=== PATIENT | male | born 1945 | race Caucasian/White ===

== ENCOUNTER 2017-10-25 14:29 | Inpatient (IN) | payer OTHER, MEDICARE ==
[~2017-10-25] VITALS: Ht 185.4 cm; Wt 95.3 kg
[2017-10-25 17:06] LABS: ABSOLUTE BASOPHIL COUNT 0 /CUMM (0.0-0.2); ABSOLUTE EOSINOPHIL COUNT 0.5 /CUMM (0.0-0.7); ABSOLUTE GRANULOCYTE CT 5.5 /CUMM (1.4-6.5); ABSOLUTE LYMPH COUNT 1.4 /CUMM (1.2-3.4); ABSOLUTE MONOCYTE COUNT 0.7 /CUMM (0.10-0.60); BASOPHIL % 0.2 % (0.0-2.0); EOSINOPHIL % 6.1 % (0-5); GRANULOCYTE % 67.8 % (42.2-75.2); HEMATOCRIT 42.4 % (42-52); MEAN CORPUSCULAR HGB 30.2 PG (27.0-31.0); MEAN CORPUSCULAR HGB CONC 33.2 G/DL (33.0-37.0); MEAN PLATELET VOLUME 9.4 FL (7.4-10.4); PLATELET COUNT 277 /CUMM (130-400); RED BLOOD CELL CT 4.66 /CUMM (4.70-6.10); WHITE BLOOD CELL COUNT 8.1 /CUMM (4.8-10.8)
--- NOTE | 2017-10-25 17:17 | ED GENERAL ADULT ---
History of Present Illness General Chief Complaint: Male Genitourinary Problems Stated Complaint: GROIN PAIN, ?UTI Source: patient Exam Limitations: no limitations Vital Signs & Intake/Output Vital Signs & Intake/Output Vital Signs Date Time Temp Pulse Resp B/P B/P Pulse O2 O2 Flow FiO2 Mean Ox Delivery Rate 10/25 2245 73 15 114/56 100 Room Air 10/25 2115 98.3 85 19 135/79 98 Room Air 10/25 1909 78 16 112/59 95 Room Air 10/25 1440 97.4 80 15 110/68 96 Room Air Room Air ED Intake and Output 10/26 0000 10/25 1200 Intake Total 100 Output Total Balance 100 Intake, IV 100 Patient 210 lb Weight Weight Reported by Patient Measurement Method Allergies Coded Allergies: digoxin (JAUNDICE 10/25/17) flecainide (JAUNDICE 10/25/17) Reconcile Medications Aspirin (Ecotrin*) 81 MG TABLET.DR 1 TAB PO DAILY HEART/BLOOD (Reported) Carvedilol (Coreg) 3.125 MG TABLET 0.5 TAB PO BID HEART/BP (Reported) Ciprofloxacin HCl 500 MG TABLET 1 TAB PO BID UTI (Reported) Lisinopril 2.5 MG TABLET 1 TAB PO DAILY BP (Reported) Rosuvastatin Calcium (Crestor) 10 MG TABLET 1 TAB PO DAILY CHOLESTEROL ( Reported) Tamsulosin HCl (Flomax) 0.4 MG CAP.ER.24H 1 CAP PO DAILY PROSTATE (Reported) Triage Note: PT TO ED FOR C/C OF DYSURIA X 4 WEEKS. PT REPORTS HE STARTS URINATING YELLOW URINE AND THEN AT THE END OF HIM URINATING THERE IS BROWN "SLUDGE." DENIES BLOOD OR BLOOD CLOTS. PT WAS DIAGNOSED WITH URO SEPSIS AT THE [facility] AND SENT TO ER AND ICU AND TREATED WITH CYPRO AND BACTRIM. DENIES ABD PAIN BUT REPORTS PAIN TO URETHRA. Triage Nurses Notes Reviewed? yes Onset: Gradual Duration: week(s): (4-5), constant, continues in ED, getting worse Timing: single episode today Injury Environment: home Severity: moderate, severe Severity Numbers: 6 No Modifying Factors: none HPI: 72-year-old male history of coronary artery disease presents for evaluation of dysuria frequency urgency and lower abdominal pain. Patient reports that back in July he had a colonoscopy and was told at that time he had a mild diverticulitis. This was not treated. He is told to change his diet. Patient states that several weeks later he developed urinary symptoms. He was seen by his doctor and diagnosed with UTI initially treated with Bactrim and then Cipro without any improvement. He began tO notice air bubbles and he sees in his urine within the last week that has been persistent. He reports intermittent suprapubic and perineal pain. No penile discharge no fevers no back pain no chest pain or shortness of breath. No hematuria. Currently he is taking Cipro without improvement. (Vimal Denny) Past History Travel History Traveled to [place] past 21 day No Medical History Any Pertinent Medical History? see below for history Neurological: NONE EENT: NONE Cardiovascular: CARDIAC STENTS Respiratory: NONE Gastrointestinal: NONE Hepatic: NONE Renal: NONE Musculoskeletal: NONE Psychiatric: NONE Endocrine: NONE Blood Disorders: NONE Cancer(s): NONE Surgical History Surgical History: non-contributory Psychosocial History What is your primary language Portuguese Tobacco Use: Quit >30 days ago ETOH Use: denies use Illicit Drug Use: denies illicit drug use Family History Hx Contributory? No (Vimal Denny) Review of Systems Review of Systems Constitutional: Reports: no symptoms. EENTM: Reports: no symptoms. Respiratory: Reports: no symptoms. Cardiovascular: Reports: no symptoms. GI: Reports: see HPI, abdominal pain. Genitourinary: Reports: see HPI, discharge, dysuria, frequency, pain, urgency. Musculoskeletal: Reports: no symptoms. Skin: Reports: no symptoms. Neurological/Psychological: Reports: no symptoms. Hematologic/Endocrine: Reports: no symptoms. Immunologic/Allergic: Reports: no symptoms. All Other Systems: Reviewed and Negative (Vimal Denny) Physical Exam Physical Exam General Appearance: well developed/nourished, no apparent distress, alert, awake Head: atraumatic, normal appearance Eyes: Bilateral: normal appearance, PERRL, EOMI. Ears, Nose, Throat: hearing grossly normal Neck: normal inspection, supple, full range of motion Respiratory: normal breath sounds, chest non-tender, no respiratory distress, lungs clear Cardiovascular: regular rate/rhythm, normal peripheral pulses Peripheral Pulses: 2+ radial (R), 2+ radial (L) Gastrointestinal: normal bowel sounds, soft, no organomegaly, tenderness (mild suprapubic) Back: normal inspection, normal range of motion, no vertebral tenderness, no CVA tenderness Extremities: normal inspection, normal range of motion, no edema Neurologic/Psych: no motor/sensory deficits, awake, alert, oriented x 3, normal gait Skin: intact, normal color, warm/dry Lymphatic: no anterior cervical philip Core Measures ACS in differential dx? No CVA/TIA Diagnosis: No Sepsis Present: No Sepsis Focused Exam Completed? No (Don DING,Vimal) Progress Differential Diagnoses I considered the following diagnoses in my evaluation of the patient: [Enteric fistula, pyelonephritis, kidney stones, prostatitis, sepsis,] Plan of Care: Orders Procedure Date/time Status ED Holding Orders 10/25 2332 Active Admit to inpatient 10/25 2332 Active Vital Signs 10/25 2332 Active Code Status 10/25 2332 Active Patient Data 10/25 2322 Active EKG 10/25 2130 Active LACTIC ACID 10/25 1740 Complete Add-on Test (ER Only) 10/25 1724 Active Intake & Output 10/25 1645 Active TROPONIN LEVEL 10/25 1637 Complete CULTURE,URINE 10/25 1440 Active BLOOD CULTURE 10/25 1440 Active URINALYSIS 10/25 1440 Complete LACTIC ACID 10/25 1440 Complete CBC WITHOUT DIFFERENTIAL 10/25 1440 Complete BASIC METABOLIC PANEL 10/25 1440 Complete Laboratory Tests 10/25/17 1900: Lactic Acid 1.2 10/25/17 1637: Anion Gap 14, Estimated GFR > 60, BUN/Creatinine Ratio 15.0, Glucose 177 H, Lactic Acid 1.7, Calcium 9.7, Troponin I < 0.01, CBC w Diff NO MAN DIFF REQ, RBC 4.66 L, MCV 91.0, MCH 30.2, MCHC 33.2, RDW 13.0, MPV 9.4, Gran % 67.8, Lymphocytes % 17.5 L, Monocytes % 8.4, Eosinophils % 6.1 H, Basophils % 0.2, Absolute Granulocytes 5.5, Absolute Lymphocytes 1.4, Absolute Monocytes 0.7 H, Absolute Eosinophils 0.5, Absolute Basophils 0 10/25/17 1525: Urine Color YEL, Urine Clarity TURBD H, Urine pH 6.5, Ur Specific [place] 1.015 , Urine Protein 30 H, Urine Ketones NEG, Urine Nitrite NEG, Urine Bilirubin NEG , Urine Urobilinogen 0.2, Ur Leukocyte Esterase LARGE H, Ur Microscopic SEDIMENT EXAMINED, Urine RBC 3-5, Urine WBC 50-75 H, Ur Epithelial Cells FEW, Urine Bacteria MANY H, Urine Hemoglobin MOD H, Urine Glucose NEG Microbiology 10/25 1637 BLOOD: Blood Culture - RECD 10/25 1625 BLOOD: Blood Culture - RECD 10/25 1525 URINE ROUT: Urine Culture - RECD Patient is here with dysuria frequency urgency and superpubic pain. Treated with multiple antibiotics. His urine is showing signs of infection. Visual inspection of his urine shows what appears to be feces. Suspect there may be a fistula. Labs CT scan of the abdomen pelvis ordered. Blood work Is not showing any acute findings. Urine cultures and blood cultures ordered. CT scan shows evidence of acute diverticulitis with fistula track between the colon and bladder. Spoke with Dr. Adler from urology who is aware. Also spoke with Dr. Paul who will admit the patient for IV antibiotics and eventual surgical intervention. Case discussed with Dr. FLORES HE agrees. Diagnostic Imaging: Viewed by Me: CT Scan. Discussed w/RAD: CT Scan. Radiology Impression: PATIENT: ZITA RODRIGUEZ PRESENT AGE: 72 PATIENT ACCOUNT NO: [id number] : 44 LOCATION: [facility] ORDERING PHYSICIAN: Vimal DING SERVICE DATE: 10/25/17 EXAM TYPE: CAT - CT ABD & PELVIS W IV CONTRAST EXAMINATION: CT ABDOMEN AND PELVIS WITH CONTRAST CLINICAL INFORMATION: 72-year-old male passing stool through urethra. Evaluate for ureteroenteric fistula, prostatitis, abscess. COMPARISON: None TECHNIQUE: Multidetector volumetric imaging was performed of the abdomen and pelvis following IV administration of 95 mL of Optiray 320 intravenous contrast. Sagittal and coronal reformatted images were obtained on the technologist's workstation. DLP: 547 mGy-cm FINDINGS: LUNG BASES: Mild atelectasis in dependent aspect of each lower lobe. Mild emphysematous changes in the bases. Atherosclerotic calcification of coronary arteries and thoracic aorta. No pericardial effusion. LIVER, GALLBLADDER, AND BILIARY TREE: Liver has normal size, contour and attenuation. Gallbladder is underdistended and without radiopaque calculi or wall edema. No intrahepatic or extrahepatic bile duct dilatation. PANCREAS: Pancreas is atrophied. No focal pancreatic lesion or pancreatic ductal dilatation. SPLEEN: Unremarkable. ADRENAL GLANDS: Unremarkable. KIDNEYS AND URETERS: Kidneys are normal in size and enhance symmetrically. No renal mass, nephrolithiasis or hydronephrosis. The ureters are normal in caliber. BLADDER: There is a fistula tract between the sigmoid colon and posterior bladder wall. Gas is present within the lumen of the bladder. No bladder calculi. GASTROINTESTINAL TRACT: Stomach is unremarkable. Bowel loops are normal in caliber. The appendix is normal. There is diverticular disease of the sigmoid colon which has a thickened wall, and mild fat stranding is seen around the sigmoid colon. A colovesical fistula is noted. Also, the fistula tract extends superiorly into the sigmoid mesentery but does not communicate with small bowel. No bowel obstruction. ABDOMINAL WALL: Unremarkable. LYMPH NODES: Mild lymphadenopathy is seen in the periportal region, with largest lymph node in this area measuring 1.1 cm short axis dimension. The retroperitoneal lymph nodes are in the normal size range. No iliac, mesenteric or inguinal lymphadenopathy. VASCULAR: Atherosclerosis of the abdominal aorta. The infrarenal abdominal aorta measures up to 3.1 cm AP diameter. PELVIC VISCERA: Prostate gland is grossly unremarkable. No evidence of prostate abscess. Trace amount of free fluid is seen in the pelvis. OSSEOUS STRUCTURES: Multilevel degenerative disc disease an facet arthropathy of the lumbar spine. No suspicious osseous lesions. IMPRESSION: 1. Diverticular disease and diverticulitis of the sigmoid colon complicated by presence of a colovesical fistula. 2. Mild lymphadenopathy in the periportal region is of questionable significance. 3. Mild aneurysmal dilatation of the infrarenal abdominal aorta ( 3.1 cm AP diameter). DICTATED BY: Armen Daley MD DATE/TIME DICTATED:10/25/172048 DISCOVERY GUIDE:IGNACIO DATE/TIME TRANSCRIBED:10/25/172048 CONFIDENTIAL, DO NOT COPY WITHOUT APPROPRIATE AUTHORIZATION. <Electronically signed in Other V Initial ED EKG: normal sinus rhythm, no ST T wave changes, PVC (Vimal Denny) Departure Departure Disposition: STILL A PATIENT Condition: Stable Clinical Impression Primary Impression: [place]-vesical fistula Secondary Impressions: Diverticulitis Referrals: Yesica WELLS,Jovany Bo (PCP/Family) Departure Forms: Customer Survey General Discharge Information Admission Note Spoke With: Joseph WELLS,William N. Documentation of Exam: Documentation of any treatments & extenuating circumstances including Concerns Regarding Discharge (functional status, medication knowledge or non-compliance, living conditions, etc.) that warrant an admission rather than observation: [IV antibiotics and urology consult general surgery consult serial labs follow-up cultures nothing by mouth IV fluids and IV pain meds] (Vimal Denny) PA/MOBILE DISC JOCKEY Co-Sign Statement Statement: ED Attending supervision documentation- [X] I saw and evaluated the patient. I have also reviewed all the pertinent lab results and diagnostic results. I agree with the findings and the plan of care as documented in the PA's/MOBILE DISC JOCKEY's documentation. [] I have reviewed the ED Record and agree with the PA's/MOBILE DISC JOCKEY's documentation. [] Additions or exceptions (if any) to the PAs/MOBILE DISC JOCKEY's note and plan are summarized below: [] I saw and personally examined the patient and I agree with the PAs evaluation. Abdomen was soft with minimal right lower quadrant tenderness on my exam. (Gil Flores DO) Critical Care Note Critical Care Note Critical Care Time: non-applicable (Vimal Denny)
[2017-10-25] MEDS ORDERED: ASPIRIN EC81 M1 PO (17:41)
[2017-10-25] MEDS ORDERED: COREG3.125 MG PO (17:42)
[2017-10-25] MEDS ORDERED: FLOMAX0.4 M1 PO (17:42)
[2017-10-25] MEDS ORDERED: LISINOPRIL2.5 M1 PO (17:42)
[2017-10-25] MEDS ORDERED: CRESTOR10 M1 PO (17:42)
[2017-10-25] MEDS ORDERED: CIPROFLOXACIN500 M2 PO (17:43)
--- NOTE | 2017-10-25 21:01 | CT SCAN REPORT ---
EXAMINATION: CT ABDOMEN AND PELVIS WITH CONTRAST CLINICAL INFORMATION: 72-year-old male passing stool through urethra. Evaluate for ureteroenteric fistula, prostatitis, abscess. COMPARISON: None TECHNIQUE: Multidetector volumetric imaging was performed of the abdomen and pelvis following IV administration of 95 mL of Optiray 320 intravenous contrast. Sagittal and coronal reformatted images were obtained on the technologist's workstation. DLP: 547 mGy-cm FINDINGS: LUNG BASES: Mild atelectasis in dependent aspect of each lower lobe. Mild emphysematous changes in the bases. Atherosclerotic calcification of coronary arteries and thoracic aorta. No pericardial effusion. LIVER, GALLBLADDER, AND BILIARY TREE: Liver has normal size, contour and attenuation. Gallbladder is underdistended and without radiopaque calculi or wall edema. No intrahepatic or extrahepatic bile duct dilatation. PANCREAS: Pancreas is atrophied. No focal pancreatic lesion or pancreatic ductal dilatation. SPLEEN: Unremarkable. ADRENAL GLANDS: Unremarkable. KIDNEYS AND URETERS: Kidneys are normal in size and enhance symmetrically. No renal mass, nephrolithiasis or hydronephrosis. The ureters are normal in caliber. BLADDER: There is a fistula tract between the sigmoid colon and posterior bladder wall. Gas is present within the lumen of the bladder. No bladder calculi. GASTROINTESTINAL TRACT: Stomach is unremarkable. Bowel loops are normal in caliber. The appendix is normal. There is diverticular disease of the sigmoid colon which has a thickened wall, and mild fat stranding is seen around the sigmoid colon. A colovesical fistula is noted. Also, the fistula tract extends superiorly into the sigmoid mesentery but does not communicate with small bowel. No bowel obstruction. ABDOMINAL WALL: Unremarkable. LYMPH NODES: Mild lymphadenopathy is seen in the periportal region, with largest lymph node in this area measuring 1.1 cm short axis dimension. The retroperitoneal lymph nodes are in the normal size range. No iliac, mesenteric or inguinal lymphadenopathy. VASCULAR: Atherosclerosis of the abdominal aorta. The infrarenal abdominal aorta measures up to 3.1 cm AP diameter. PELVIC VISCERA: Prostate gland is grossly unremarkable. No evidence of prostate abscess. Trace amount of free fluid is seen in the pelvis. OSSEOUS STRUCTURES: Multilevel degenerative disc disease an facet arthropathy of the lumbar spine. No suspicious osseous lesions. IMPRESSION: 1. Diverticular disease and diverticulitis of the sigmoid colon complicated by presence of a colovesical fistula. 2. Mild lymphadenopathy in the periportal region is of questionable significance. 3. Mild aneurysmal dilatation of the infrarenal abdominal aorta (3.1 cm AP diameter).
--- NOTE | 2017-10-26 00:53 | History & Physical Pre-Op ---
General Information and [facility] MD Statement: I have seen and personally examined ZITA RODRIGUEZ and documented this H&P. The patient is a 72 year old M who presented with a patient stated chief complaint of "brown urine". Source of Information: patient, family Exam Limitations: no limitations History of Present Illness: Patient is a 72-year-old male with a past medical history significant for coronary artery disease, MO/stents, who presented to the ED on 10/25/2017 around 2:45 PM with complaints of progressively worsening dysuria (which he describes as sharp "prostate" pain) and brown, turbid urine. Patient reports a recent history of urosepsis, requiring 2 previous ED visits at [facility] and the [facility], with a subsequent admission to the ICU at the [facility] about 3 weeks ago, after failing a course of oral antibiotics. He received IV antibiotics for about 2 days and then was discharged home on oral Cipro, which he's been taking for the past 3 weeks. He is scheduled to see Urologist, Dr. Adler, on 10/30/2017, but became worried when his symptoms were not improving and his urine was appearing darker brown with time. He also noted air in his urine for about the past week, thus prompting visit to the [place] ED. Subsequent workup revealed acute diverticulitis with evidence of colovesicular fistula. He is afebrile, vital signs are stable, and he denies significant pain at this time. He reports feeling hungry, as per his usual appetite. Otherwise denies headache, dizziness, acute chest pain, palpitations, shortness of breath, cough, nausea, vomiting, changes in bowel habits. Of note, patient had a routine stool sample done earlier this year for colon cancer screening, which was heme positive. This prompted a colonoscopy, which revealed evidence of diverticulosis and hemorrhoids. Per patient report, no treatment was recommended, as there was no evidence of infection or instability at that time. Allergies/Medications Allergies: Coded Allergies: digoxin (JAUNDICE 10/25/17) flecainide (JAUNDICE 10/25/17) Home Med list Aspirin (Ecotrin*) 81 MG TABLET. 1 TAB PO DAILY HEART/BLOOD (Reported) Carvedilol (Coreg) 3.125 MG TABLET 0.5 TAB PO BID HEART/BP (Reported) Ciprofloxacin HCl 500 MG TABLET 1 TAB PO BID UTI (Reported) Lisinopril 2.5 MG TABLET 1 TAB PO DAILY BP (Reported) Rosuvastatin Calcium (Crestor) 10 MG TABLET 1 TAB PO DAILY CHOLESTEROL ( Reported) Tamsulosin HCl (Flomax) 0.4 MG CAP.ER.24H 1 CAP PO DAILY PROSTATE (Reported) Compliance With Home Meds: GOOD Past History Medical History Neurological: NONE EENT: NONE Cardiovascular: CARDIAC STENTS Respiratory: NONE Gastrointestinal: NONE Hepatic: NONE Renal: NONE Musculoskeletal: NONE Psychiatric: NONE Endocrine: NONE Blood Disorders: NONE Cancer(s): NONE Surgical History Pertinent Surgical History: bilateral carpal tunnel Past Family/Social History Psychosocial History Where Do You Live? Home Who Do You Live With? spouse Smoking Status: Former Smoker (quit 1979 (prior 30+ yrs)) ETOH Use: denies use Illicit Drug Use: denies illicit drug use Functional Ability Ambulation: independent Review of Systems Review of Systems: Positive for dysuria, she describes as "prostate" pain, with some urinary retention, brown urine with large amounts of air noted during void. Negative for fever, chills, sweating, headache, dizziness, chest pain, shortness of breath, palpitations, cough, nausea, vomiting, changes in bowel habits. Exam & Diagnostic Data Last 24 Hrs of Vital Signs/I&O Vital Signs Date Time Temp Pulse Resp B/P B/P Pulse O2 O2 Flow FiO2 Mean Ox Delivery Rate 10/25 2245 73 15 114/56 100 Room Air 10/25 2115 98.3 85 19 135/79 98 Room Air 10/25 1909 78 16 112/59 95 Room Air 10/25 1440 97.4 80 15 110/68 96 Room Air Room Air Intake & Output 10/26 0800 10/26 0000 10/25 1600 Intake Total 100 Output Total Balance 100 Intake, IV 100 Patient 210 lb Weight Weight Reported by Patient Measurement Method Physical Exam: Gen.: Patient is a well-developed, well-nourished 72-year-old male in no acute distress. He is alert and oriented 3. Ears comfortable. Cardiac: Regular Pulmonary: Lungs are clear bilaterally. Abdomen: Soft and nondistended. Nontender throughout. No surgical scars are appreciated. 4 active bowel sounds are heard. Last 24 Hrs of Labs/Shahzad: Laboratory Tests 10/25/17 1900: Lactic Acid 1.2 10/25/17 1637: Anion Gap 14, Estimated GFR > 60, BUN/Creatinine Ratio 15.0, Glucose 177 H, Lactic Acid 1.7, Calcium 9.7, Troponin I < 0.01, CBC w Diff NO MAN DIFF REQ, RBC 4.66 L, MCV 91.0, MCH 30.2, MCHC 33.2, RDW 13.0, MPV 9.4, Gran % 67.8, Lymphocytes % 17.5 L, Monocytes % 8.4, Eosinophils % 6.1 H, Basophils % 0.2, Absolute Granulocytes 5.5, Absolute Lymphocytes 1.4, Absolute Monocytes 0.7 H, Absolute Eosinophils 0.5, Absolute Basophils 0 10/25/17 1525: Urine Color YEL, Urine Clarity TURBD H, Urine pH 6.5, Ur Specific [place] 1.015 , Urine Protein 30 H, Urine Ketones NEG, Urine Nitrite NEG, Urine Bilirubin NEG , Urine Urobilinogen 0.2, Ur Leukocyte Esterase LARGE H, Ur Microscopic SEDIMENT EXAMINED, Urine RBC 3-5, Urine WBC 50-75 H, Ur Epithelial Cells FEW, Urine Bacteria MANY H, Urine Hemoglobin MOD H, Urine Glucose NEG Microbiology 10/26 0017 URINE ROUT: Urine Culture - ORD 10/25 1637 BLOOD: Blood Culture - RECD 10/25 1625 BLOOD: Blood Culture - RECD 10/25 1525 URINE ROUT: Urine Culture - RECD Diagnostic Data Other Results CT scan of abdomen and pelvis revealed: 1. Diverticular disease and diverticulitis of the sigmoid colon complicated by presence of a colovesical fistula. 2. Mild lymphadenopathy in the periportal region is of questionable significance. 3. Mild aneurysmal dilatation of the infrarenal abdominal aorta (3.1 cm AP diameter). Assessment/Plan Assessment/Plan: Patient is a 72-year-old male with a history of coronary artery disease, MO/ stents who has been treated for UTI/urosepsis with intermittent IV and oral antibiotics for the past 4 weeks. He presented with progressively worsening symptoms and CT evidence of diverticulitis and colovesicular fistula, without active fevers or leukocytosis. Plan: -Admit to general on William Ruiz MD's service. -Patient remains hemodynamically stable and therefore no emergent surgical intervention is required, however he will most likely require surgical correction sometime later this week. -Sanchez catheter for bladder decompression. If urology c/s is needed, notify Dr. Adler as pt is scheduled to see him later this week. -IV Unasyn every 6 hours. -Low fiber diet. -IV fluids at 75 ML's per hour. -Patient may ambulate as desired. -Subcutaneous heparin for DVT prophylaxis and Alps when in bed. -Monitor temps, WBC, urine color, and serial exams. -If tachycardia is noted, low threshold for checking EKG because pt was thought to have a brief episode of atrial fibrillation during a stress test about 4 weeks ago. Holter monitoring has been negative, but completion of workup is still pending. Pt's network operations specialist is Cosme Rodriguez. -This was discussed with William Ruiz MD and he agrees with the plan. As Ranked By This Provider Problem List: 1. Diverticulitis 2. [place]-vesical fistula
[2017-10-26 02:10] VITALS: BP 112/64
[2017-10-26 06:20] VITALS: BP 112/68
--- NOTE | 2017-10-26 09:02 | PN- General Surgery ---
Subjective Subjective: HD#1 DIVERTICULITIS W/CV FISTULA cont iwth intemittent sharp stabbing pain in perineal area denies abd pain no cp, sob, no n+v with diet Objective Vital Signs and I&Os Vital Signs Date Time Temp Pulse Resp B/P B/P Pulse O2 O2 Flow FiO2 Mean Ox Delivery Rate 10/26 0620 97.8 79 18 112/68 95 Room Air 10/26 0210 98.0 71 18 112/64 94 Room Air 10/26 0101 98.9 68 18 105/62 98 Room Air 10/25 2245 73 15 114/56 100 Room Air 10/25 2115 98.3 85 19 135/79 98 Room Air 10/25 1909 78 16 112/59 95 Room Air 10/25 1440 97.4 80 15 110/68 96 Room Air Room Air Intake & Output 10/26 1600 10/26 0800 10/26 0000 10/25 1600 10/25 0800 10/25 0000 Intake Total 500 100 Output Total 500 Balance 0 100 Intake, IV 400 100 Intake, Oral 100 Output, Urine 500 Patient 207 lb 210 lb Weight Weight Bed scale Reported by Patient Measurement Method Physical Exam: cv: rrr lungs; clear abd: soft, +bs minimal pain with low ad palp no guarding or peritonitis ext: warm, distal cms intact davis: clear urine Assessment/Plan Assessment/Plan surgical stable plan iv abx dr wisnlow to see Core Measures Venous Thromboembolism VTE Risk Factors Age>40 No Mechanical VTE Prophylaxis d/t N/A MechProphylax Ordered No VTE Pharm Prophylaxis d/t NA PharmProphylax ordered
[2017-10-26 09:16] LABS: ABSOLUTE BASOPHIL COUNT 0 /CUMM (0.0-0.2); ABSOLUTE EOSINOPHIL COUNT 0.6 /CUMM (0.0-0.7); ABSOLUTE GRANULOCYTE CT 1.9 /CUMM (1.4-6.5); ABSOLUTE LYMPH COUNT 1.2 /CUMM (1.2-3.4); ABSOLUTE MONOCYTE COUNT 0.6 /CUMM (0.10-0.60); BASOPHIL % 0.6 % (0.0-2.0); EOSINOPHIL % 13.2 % (0-5); GRANULOCYTE % 43.7 % (42.2-75.2); MEAN CORPUSCULAR HGB 30.4 PG (27.0-31.0); MEAN CORPUSCULAR HGB CONC 33.4 G/DL (33.0-37.0); MEAN CORPUSCULAR VOLUME 91.1 FL (80.0-94.0); MEAN PLATELET VOLUME 9.4 FL (7.4-10.4); PLATELET COUNT 194 /CUMM (130-400); RBC DISTRIBUTION WIDTH 13.2 % (11.5-14.5); RED BLOOD CELL CT 3.88 /CUMM (4.70-6.10); WHITE BLOOD CELL COUNT 4.3 /CUMM (4.8-10.8)
[2017-10-26 09:39] LABS: HEMATOCRIT 35.4 % (42-52)
[2017-10-26 15:33] VITALS: BP 100/60
--- NOTE | 2017-10-26 16:22 | History & Physical Pre-Op ---
General Information and HPI MD Statement: I have seen and personally examined ZTIA RODRIGUEZ and documented this H&P. The patient is a 72 year old M who presented with a patient stated chief complaint of []. Source of Information: patient, family Exam Limitations: no limitations History of Present Illness: CC: Urine infection HPI: 72-year-old nondiabetic nonsmoker with a remote history of an NV not on anticoagulants had a colonoscopy in July they saw 2 benign polyps and question of some mild signs of sigmoid diverticulitis felt not need to be treated, then shortly after that he started having a urinary infection has been on 3 different antibiotics even admitted at another hospital for urosepsis briefly but he came here last night because the urine is becoming browner also it hurts for him to be especially at his prostate which is enlarged he's on Flomax, he was also seeking a second opinion from urology and has an appointment is also noted occasional air bubbles while he is being overall this is been going on for a few weeks otherwise no fever shakes chills no abdominal pain throughout this episode he never had diverticulitis before denies any significant changes in his bowel habits constipation or diarrhea no nausea no cramping he's tolerating diet no shortness of breath no chest pain no recent flulike symptoms no bleeding per rectum and no gross hematuria. I've reviewed the [facility]. No history of GERD, PUD, bleeding problems, heart disease or issues with anesthesia. Past surgical history no prior abdominal surgery, family history no diabetes or cancer. Allergies/Medications Allergies: Coded Allergies: digoxin (JAUNDICE 10/25/17) flecainide (JAUNDICE 10/25/17) Home Med list Aspirin (Ecotrin*) 81 MG TABLET.DR 1 TAB PO DAILY HEART/BLOOD (Reported) Carvedilol (Coreg) 3.125 MG TABLET 0.5 TAB PO BID HEART/BP (Reported) Ciprofloxacin HCl 500 MG TABLET 1 TAB PO BID UTI (Reported) Lisinopril 2.5 MG TABLET 1 TAB PO DAILY BP (Reported) Rosuvastatin Calcium (Crestor) 10 MG TABLET 1 TAB PO DAILY CHOLESTEROL ( Reported) Tamsulosin HCl (Flomax) 0.4 MG CAP.ER.24H 1 CAP PO DAILY PROSTATE (Reported) Compliance With Home Meds: GOOD Past History Medical History Blood Transfusion Hx: No Neurological: NONE EENT: hearing loss, TINNITIS Cardiovascular: hypertension, hyperlipidemia, CARDIAC STENTS Respiratory: NONE Gastrointestinal: NONE Hepatic: NONE Renal: NONE Musculoskeletal: NONE Psychiatric: NONE Endocrine: NONE Blood Disorders: NONE Cancer(s): NONE 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 Home Who Do You Live With? spouse Services at Home None Smoking Status: Former Smoker (quit 1979 (prior 30+ yrs)) ETOH Use: denies use Illicit Drug Use: denies illicit drug use Functional Ability Ambulation: independent Review of Systems Review of Systems: Constitutional: No fever, sweats or weight loss ENMT: No sore throat Cardiovascular: No chest pain, palpitations or leg swelling Respiratory: No shortness of breath, cough, or sputum or dyspnea on exertion GI: No GERD or bleeding per rectum : No dysuria or hematuria Musculoskeletal: No new muscle weakness, bone or joint pain Skin / Breast: No jaundice, rashes or itching Psychiatric: No history of drug or alcohol abuse no depression or anxiety Hematologic / lymphatic system: No problems with excessive bleeding, bruising, or blood clots Exam & Diagnostic Data Last 24 Hrs of Vital Signs/I&O I reviewed Vital Signs Date Time Temp Pulse Resp B/P B/P Pulse O2 O2 Flow FiO2 Mean Ox Delivery Rate 10/26 1533 98.0 66 20 100/60 94 10/26 0620 97.8 79 18 112/68 95 Room Air 10/26 0210 98.0 71 18 112/64 94 Room Air 10/26 0101 98.9 68 18 105/62 98 Room Air 10/25 2245 73 15 114/56 100 Room Air 10/25 2115 98.3 85 19 135/79 98 Room Air 10/25 1909 78 16 112/59 95 Room Air I reviewed Intake & Output 10/26 1600 10/26 0800 10/26 0000 Intake Total 1450 500 100 Output Total 700 500 Balance 750 0 100 Intake, IV 600 400 100 Intake, Oral 850 100 Output, Urine 700 500 Patient 207 lb Weight Weight Bed scale Measurement Method Physical Exam: Sanchez catheter urine clear yellow Constitutional: pleasant, no acute distress, conversant Eyes: sclera anicteric ENMT: ears and nose atraumatic, moist mucous membranes, good dentition, no lip lesions Neck: Supple, trachea is midline, no cervical or supraclavicular adenopathy and no palpable thyromegaly Cardiovascular: S1, S2, no murmurs, no peripheral edema Respiratory: clear to auscultation with normal respiratory effort and no intercostal retractions GI: abdomen soft, nontender, nondistended, no palpable hepatosplenomegaly Extremities / lymphatics: symmetrically warm, free range of motion no peripheral edema, no cervical, supraclavicular, axillary, or inguinal adenopathy Musculoskeletal: Did not evaluate gait and station, no digital cyanosis, good muscle strength and tone no atrophy, motor grossly 5 out of 5 throughout Skin: no jaundice, no rashes warm, nondiaphoretic, no areas of erythema or induration Psychiatric: mood and affect are appropriate and alert and oriented to person place and time Last 24 Hrs of Labs/Shahzad: I reviewed Laboratory Tests 10/26/17 0800: CBC w Diff NO MAN DIFF REQ, RBC 3.88 L, MCV 91.1, MCH 30.4, MCHC 33.4, RDW 13.2 , MPV 9.4, Gran % 43.7, Lymphocytes % 27.5, Monocytes % 15.0 H, Eosinophils % 13.2 H, Basophils % 0.6, Absolute Granulocytes 1.9, Absolute Lymphocytes 1.2, Absolute Monocytes 0.6, Absolute Eosinophils 0.6, Absolute Basophils 0 10/25/17 1900: Lactic Acid 1.2 10/25/17 1637: Anion Gap 14, Estimated GFR > 60, BUN/Creatinine Ratio 15.0, Glucose 177 H, Lactic Acid 1.7, Calcium 9.7, Troponin I < 0.01, CBC w Diff NO MAN DIFF REQ, RBC 4.66 L, MCV 91.0, MCH 30.2, MCHC 33.2, RDW 13.0, MPV 9.4, Gran % 67.8, Lymphocytes % 17.5 L, Monocytes % 8.4, Eosinophils % 6.1 H, Basophils % 0.2, Absolute Granulocytes 5.5, Absolute Lymphocytes 1.4, Absolute Monocytes 0.7 H, Absolute Eosinophils 0.5, Absolute Basophils 0 Microbiology 10/26 0220 URINE ROUT: Urine Culture - RECD 10/25 1637 BLOOD: Blood Culture - RES 10/25 1625 BLOOD: Blood Culture - RES Diagnostic Data Other Results CT scan of abdomen and pelvis revealed: 1. Diverticular disease and diverticulitis of the sigmoid colon complicated by presence of a colovesical fistula. 2. Mild lymphadenopathy in the periportal region is of questionable significance. 3. Mild aneurysmal dilatation of the infrarenal abdominal aorta (3.1 cm AP diameter). Assessment/Plan Assessment/Plan: Studies I reviewed yesterday's CT scan on PACS myself, it shows a redundant sigmoid colon distally its thickened with multiple diverticula and you can see the connection to the bladder posteriorly Electrolytes yesterday within normal limits other than BUN being elevated white blood cell count a little low and his baseline no shift, hemoglobin down reflecting hydration overnight. Impression is complicated sigmoid diverticulitis with colovesical fistula, he is not septic he has no abdominal pain and no bowel obstruction, but he did have urosepsis from this earlier. I don't feel emergency surgery is indicated that would involve a colostomy question is timing of primary resection in the face of ongoing colonic inflammation out of concern for a successful primary anastomosis , he seems better just from a Sanchez catheter so we'll discuss with whether we should wait for further decrease inflammation with him having a Sanchez at home, versus prep tomorrow resection this admission, because he is already had several weeks of oral antibiotics without obvious improvement in him not sure IV we'll make that much of a difference. I explained to him that generally we try to avoid colonic surgery during acute inflammation because of risk to surrounding structures and anastomotic leak with those risky morbid sequela. Also in anticipation of OR will get cardiology because of his history. As Ranked By This Provider Problem List: 1. [place]-vesical fistula 2. Diverticulitis
[2017-10-26 20:56] VITALS: BP 102/62
[2017-10-27 06:42] VITALS: BP 106/74
[2017-10-27 08:57] LABS: ABSOLUTE BASOPHIL COUNT 0 /CUMM (0.0-0.2); ABSOLUTE EOSINOPHIL COUNT 0.5 /CUMM (0.0-0.7); ABSOLUTE GRANULOCYTE CT 3.6 /CUMM (1.4-6.5); ABSOLUTE LYMPH COUNT 0.9 /CUMM (1.2-3.4); ABSOLUTE MONOCYTE COUNT 0.5 /CUMM (0.10-0.60); BASOPHIL % 0.4 % (0.0-2.0); EOSINOPHIL % 9.4 % (0-5); GRANULOCYTE % 64.5 % (42.2-75.2); HEMATOCRIT 37.6 % (42-52); MEAN CORPUSCULAR HGB 30.3 PG (27.0-31.0); MEAN CORPUSCULAR HGB CONC 33.5 G/DL (33.0-37.0); MEAN CORPUSCULAR VOLUME 90.5 FL (80.0-94.0); MEAN PLATELET VOLUME 9.7 FL (7.4-10.4); PLATELET COUNT 196 /CUMM (130-400); RBC DISTRIBUTION WIDTH 13.4 % (11.5-14.5); RED BLOOD CELL CT 4.16 /CUMM (4.70-6.10); WHITE BLOOD CELL COUNT 5.5 /CUMM (4.8-10.8)
--- NOTE | 2017-10-27 10:13 | Cons- Urology ---
General Information and HPI Consulting Request Date of Consult: 10/27/17 Requested By: Joseph WELLS,William Pimentel Reason for Consult: colo-vesciacal fistula Source of Information: patient, old records Exam Limitations: no limitations History of Present Illness: PT WITH BPH, AND 6 WEEKS ABD. PAIN-TXD AT [place] WITH ABX: CAME TO ER WITH STOOL AND GAS WHEN VOIDING: CT CONFIRMS COLO-VESICAL FISTULA FROM DIVERTICULITIS. DISCUSSED WITH PT PLAN AND NEED FOR ALBARADO. Allergies/Medications Allergies: Coded Allergies: digoxin (JAUNDICE 10/25/17) flecainide (JAUNDICE 10/25/17) Home Med List: Aspirin (Ecotrin*) 81 MG TABLET.DR 1 TAB PO DAILY HEART/BLOOD (Reported) Carvedilol (Coreg) 3.125 MG TABLET 0.5 TAB PO BID HEART/BP (Reported) Ciprofloxacin HCl 500 MG TABLET 1 TAB PO BID UTI (Reported) Lisinopril 2.5 MG TABLET 1 TAB PO DAILY BP (Reported) Rosuvastatin Calcium (Crestor) 10 MG TABLET 1 TAB PO DAILY CHOLESTEROL ( Reported) Tamsulosin HCl (Flomax) 0.4 MG CAP.ER.24H 1 CAP PO DAILY PROSTATE (Reported) Current Medications: Current Medications Sig/Michael Start time Last Medication Dose Route Stop Time Status Admin Acetaminophen 650 MG Q4P PRN 10/26 0030 AC PO Ampicillin Sodium/ 3,000 MG Q6H 10/26 0400 AC 10/27 Sulbactam Sodium IV 1008 Sodium Chloride 100 ML Aspirin Buffered 81 MG DAILY 10/26 0900 AC 10/27 PO 0842 Atorvastatin Calcium 40 MG 1700 10/26 1700 AC 10/26 PO 1612 Carvedilol 1.5625 MG BID 10/26 0900 AC 10/27 PO 0843 Heparin Sodium 5,000 UNIT Q8 10/26 0600 AC 10/27 (Porcine) SC 0508 Lisinopril 2.5 MG DAILY 10/26 0900 AC 10/27 PO 0842 Oxycodone/ 1 TAB Q4P PRN 10/26 0030 AC 10/27 Acetaminophen PO 1011 Oxycodone/ 2 TAB Q4P PRN 10/26 0030 AC 10/26 Acetaminophen PO 1501 Sodium Chloride 1,000 ML Q13H 10/26 0030 AC 10/26 IV 1502 Tamsulosin HCl 0.4 MG AT BEDTIME 10/26 2099 AC 10/26 PO 2057 Past History Medical History Blood Transfusion Hx: No Neurological: NONE EENT: hearing loss, TINNITIS Cardiovascular: hypertension, hyperlipidemia, CARDIAC STENTS Respiratory: NONE Gastrointestinal: NONE Hepatic: NONE Renal: NONE Musculoskeletal: NONE Psychiatric: NONE Endocrine: NONE Blood Disorders: NONE Cancer(s): NONE 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 Home Who Do You Live With? spouse Services at Home: None Smoking Status: Former Smoker (quit 1979 (prior 30+ yrs)) ETOH Use: denies use Illicit Drug Use: denies illicit drug use Functional Ability ADLs Independent: dressing, eating, toileting, bathing. Ambulation: independent IADLs Independent: shopping, housework, finances, food prep, telephone, transportation , medication admin. Employment History Employment: Employed Retired? no Review of Systems Review of Systems Constitutional: Reports: fever, malaise. EENTM: Denies: no symptoms. Cardiovascular: Denies: no symptoms. Respiratory: Denies: no symptoms. GI: Reports: abdominal pain, bloating. Genitourinary: Reports: dysuria, pain. Musculoskeletal: Denies: no symptoms. Skin: Denies: no symptoms. Exam & Diagnostic Data Vital Signs and I&O Vital Signs Date Time Temp Pulse Resp B/P B/P Pulse O2 O2 Flow FiO2 Mean Ox Delivery Rate 10/27 0642 97.4 66 16 106/74 91 Room Air 10/26 2058 72 102/62 10/26 2057 72 102/62 10/27 2055 97.7 72 18 102/62 92 10/26 1533 98.0 66 20 100/60 94 Intake & Output 10/27 1600 10/27 0000 10/26 1600 10/26 0000 Intake Total 681 875 7241 500 100 Output Total 500 500 700 500 Balance 200 -100 750 0 100 Intake, IV 600 300 600 400 100 Intake, Oral 100 100 850 100 Output, Urine 500 500 700 500 Patient 214 lb 207 lb Weight Weight Bed scale Bed scale Measurement Method Physical Exam General Appearance: well developed/nourished, no apparent distress Head: atraumatic Eyes: Bilateral: normal appearance. Neck: normal inspection Respiratory: normal breath sounds Cardiovascular: regular rate/rhythm Gastrointestinal: normal bowel sounds, non-tender Back: normal inspection, no vertebral tenderness Extremities: normal inspection Reproductive: Normal male genitalia, ALBARADO IN PLACE Last 24 Hours of Labs: Laboratory Tests 10/27 744 Hematology CBC w Diff NO MAN DIFF REQ WBC (4.8 - 10.8 /CUMM) 5.5 RBC (4.70 - 6.10 /CUMM) 4.16 L Hgb (14.0 - 18.0 G/DL) 12.6 L Hct (42 - 52 %) 37.6 L MCV (80.0 - 94.0 FL) 90.5 MCH (27.0 - 31.0 PG) 30.3 MCHC (33.0 - 37.0 G/DL) 33.5 RDW (11.5 - 14.5 %) 13.4 Plt Count (130 - 400 /CUMM) 196 MPV (7.4 - 10.4 FL) 9.7 Gran % (42.2 - 75.2 %) 64.5 Lymphocytes % (20.5 - 51.1 %) 16.6 L Monocytes % (1.7 - 9.3 %) 9.1 Eosinophils % (0 - 5 %) 9.4 H Basophils % (0.0 - 2.0 %) 0.4 Absolute Granulocytes (1.4 - 6.5 /CUMM) 3.6 Absolute Lymphocytes (1.2 - 3.4 /CUMM) 0.9 L Absolute Monocytes (0.10 - 0.60 /CUMM) 0.5 Absolute Eosinophils (0.0 - 0.7 /CUMM) 0.5 Absolute Basophils (0.0 - 0.2 /CUMM) 0 Imaging Results: PATIENT: ZITA RODRIGUEZ PRESENT AGE: 72 PATIENT ACCOUNT NO: [id number] : 44 LOCATION: [facility] ORDERING PHYSICIAN: Vimal DING SERVICE DATE: 10/25/17 EXAM TYPE: CAT - CT ABD & PELVIS W IV CONTRAST EXAMINATION: CT ABDOMEN AND PELVIS WITH CONTRAST CLINICAL INFORMATION: 72-year-old male passing stool through urethra. Evaluate for ureteroenteric fistula, prostatitis, abscess. COMPARISON: None TECHNIQUE: Multidetector volumetric imaging was performed of the abdomen and pelvis following IV administration of 95 mL of Optiray 320 intravenous contrast. Sagittal and coronal reformatted images were obtained on the technologist's workstation. DLP: 547 mGy-cm FINDINGS: LUNG BASES: Mild atelectasis in dependent aspect of each lower lobe. Mild emphysematous changes in the bases. Atherosclerotic calcification of coronary arteries and thoracic aorta. No pericardial effusion. LIVER, GALLBLADDER, AND BILIARY TREE: Liver has normal size, contour and attenuation. Gallbladder is underdistended and without radiopaque calculi or wall edema. No intrahepatic or extrahepatic bile duct dilatation. PANCREAS: Pancreas is atrophied. No focal pancreatic lesion or pancreatic ductal dilatation. SPLEEN: Unremarkable. ADRENAL GLANDS: Unremarkable. KIDNEYS AND URETERS: Kidneys are normal in size and enhance symmetrically. No renal mass, nephrolithiasis or hydronephrosis. The ureters are normal in caliber. BLADDER: There is a fistula tract between the sigmoid colon and posterior bladder wall. Gas is present within the lumen of the bladder. No bladder calculi. GASTROINTESTINAL TRACT: Stomach is unremarkable. Bowel loops are normal in caliber. The appendix is normal. There is diverticular disease of the sigmoid colon which has a thickened wall, and mild fat stranding is seen around the sigmoid colon. A colovesical fistula is noted. Also, the fistula tract extends superiorly into the sigmoid mesentery but does not communicate with small bowel. No bowel obstruction. ABDOMINAL WALL: Unremarkable. LYMPH NODES: Mild lymphadenopathy is seen in the periportal region, with largest lymph node in this area measuring 1.1 cm short axis dimension. The retroperitoneal lymph nodes are in the normal size range. No iliac, mesenteric or inguinal lymphadenopathy. VASCULAR: Atherosclerosis of the abdominal aorta. The infrarenal abdominal aorta measures up to 3.1 cm AP diameter. PELVIC VISCERA: Prostate gland is grossly unremarkable. No evidence of prostate abscess. Trace amount of free fluid is seen in the pelvis. OSSEOUS STRUCTURES: Multilevel degenerative disc disease an facet arthropathy of the lumbar spine. No suspicious osseous lesions. IMPRESSION: 1. Diverticular disease and diverticulitis of the sigmoid colon complicated by presence of a colovesical fistula. 2. Mild lymphadenopathy in the periportal region is of questionable significance. 3. Mild aneurysmal dilatation of the infrarenal abdominal aorta (3.1 cm AP diameter). DICTATED BY: Armen Daley MD DATE/TIME DICTATED:10/25/172048 PRODUCT LISTER:IGNACIO DATE/TIME TRANSCRIBED:10/25/172048 CONFIDENTIAL, DO NOT COPY WITHOUT APPROPRIATE AUTHORIZATION. <Electronically signed in Other Vendor System> SIGNED BY: Armen Daley MD 10/25/172100 Assessment/Plan Assessment/Plan COLO-VESICAL FISTULA/IV ABX AND PLAN FOR COLONRESECTIOIN WITH BLADDER REPAIR, CYSTO-STENT Copies To: Vitor WELLS,Adrian Cevallos Acknowledgment - Thank you for your consult request. Attending MD Review Statement Attending Statement Attending MD Statement: examined this patient, discuss w/resident/PA/PASSENGER CAR CLEANING SUPERVISOR Attending Assessment/Plan: pt with C-V fistula: to have colon resection, would recommend cysto-stent at same time.
[2017-10-27 14:41] VITALS: BP 102/64
--- NOTE | 2017-10-27 16:05 | Cons- Cardiology ---
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 The patient is now admitted to the hospital with evidence of a colovesicular fistula. He is tentatively scheduled for surgery on Saturday. I was asked see the patient for preoperative assessment of his cardiac status. The patient's past medical history is remarkable for coronary artery disease. He has had multiple interventions and stents. However no recent stents of been placed. He is currently on medical management with only aspirin 325 mg for antiplatelet coverage. According to the patient, he had a nuclear stress test within the last several months which was reportedly normal. The patient has been active and asymptomatic with a good aerobic capacity. He denies any new cardiac issues. His outside cardiology records are not available to me at the present time As noted above, the patient is tentatively scheduled for surgery on Saturday. Allergies/Medications Allergies: Coded Allergies: digoxin (JAUNDICE 10/25/17) flecainide (JAUNDICE 10/25/17) Home Med List: Aspirin (Ecotrin*) 81 MG TABLET.DR 1 TAB PO DAILY HEART/BLOOD (Reported) Carvedilol (Coreg) 3.125 MG TABLET 0.5 TAB PO BID HEART/BP (Reported) Ciprofloxacin HCl 500 MG TABLET 1 TAB PO BID UTI (Reported) Lisinopril 2.5 MG TABLET 1 TAB PO DAILY BP (Reported) Rosuvastatin Calcium (Crestor) 10 MG TABLET 1 TAB PO DAILY CHOLESTEROL ( Reported) Tamsulosin HCl (Flomax) 0.4 MG CAP.ER.24H 1 CAP PO DAILY PROSTATE (Reported) Current Medications: Current Medications Sig/Michael Start time Last Medication Dose Route Stop Time Status Admin Acetaminophen 650 MG Q4P PRN 10/26 0030 AC PO Ampicillin Sodium/ 3,000 MG Q6H 10/26 0400 AC 10/27 Sulbactam Sodium IV 1008 Sodium Chloride 100 ML Aspirin Buffered 81 MG DAILY 10/26 0900 AC 10/27 PO 0842 Atorvastatin Calcium 40 MG 1700 10/26 1700 AC 10/26 PO 1612 Carvedilol 1.5625 MG BID 10/26 0900 AC 10/27 PO 0843 Heparin Sodium 5,000 UNIT Q8 10/26 0600 AC 10/27 (Porcine) SC 1442 Lisinopril 2.5 MG DAILY 10/26 0900 AC 10/27 PO 0842 Oxycodone/ 1 TAB Q4P PRN 10/26 0030 AC 10/27 Acetaminophen PO 1011 Oxycodone/ 2 TAB Q4P PRN 10/26 0030 AC 10/26 Acetaminophen PO 1501 Sodium Chloride 1,000 ML Q13H 10/26 0030 10/26 IV 1502 Tamsulosin HCl 0.4 MG AT BEDTIME 10/26 2099 AC 10/26 PO 2057 Past History Travel History Traveled to [place] past 21 day No Medical History Blood Transfusion Hx: No Neurological: NONE EENT: hearing loss, TINNITIS Cardiovascular: hypertension, hyperlipidemia, CARDIAC STENTS Respiratory: NONE Gastrointestinal: NONE Hepatic: NONE Renal: NONE Musculoskeletal: NONE Psychiatric: NONE Endocrine: NONE Blood Disorders: NONE Cancer(s): NONE SOLAR SITE ASSESSMENT SPECIALIST/Reproductive: ENLARGED PROSTATE Surgical History Surgical History: bilateral carpal tunnel Psychosocial History Where Do You Live? Home Who Do You Live With? spouse Services at Home: None Smoking Status: Former Smoker (quit 1979 (prior 30+ yrs)) ETOH Use: denies use Illicit Drug Use: denies illicit drug use Functional Ability ADLs Independent: dressing, eating, toileting, bathing. Ambulation: independent IADLs Independent: shopping, housework, finances, food prep, telephone, transportation , medication admin. Employment History Employment: Employed Exam & Diagnostic Data Vital Signs and I&O Vital Signs Date Time Temp Pulse Resp B/P B/P Pulse O2 O2 Flow FiO2 Mean Ox Delivery Rate 10/27 1441 98.3 74 20 102/64 95 Room Air 10/27 641 97.4 66 16 106/74 91 Room Air 10/26 2058 72 102/62 10/26 2057 72 102/62 10/27 2055 97.7 72 18 102/62 92 Intake & Output 10/27 1600 10/27 0000 10/26 1600 10/26 0000 Intake Total 2100 405 604 2268 500 100 Output Total 1525 500 500 700 500 Balance 575 200 -100 750 0 100 Intake, IV 600 600 300 600 400 100 Intake, Oral 1500 100 100 850 100 Output, Urine 1525 500 500 700 500 Patient 214 lb 207 lb Weight Weight Bed scale Bed scale Measurement Method Physical Exam: General Appearance: well developed/nourished, alert, awake, oriented Head: normal HEENT: Normal Neck: supple, JVP normal, carotid upstrokes normal bilaterally, no masses or thyromegaly Respiratory: chest non-tender, clear to auscultation and percussion bilaterally Cardiovascular: regular rate/rhythm, normal S1, S2, 1/6 systolic murmur Abdomen: normal bowel sounds, soft, non-tender Extremities: normal inspection, no edema Vascular: Pulses are 2+ and equal bilaterally Neurologic: Grossly normal/nonfocal Labs/Shahzad Results: Laboratory Tests 10/27 10/26 0745 0800 Hematology CBC w Diff NO MAN DIFF REQ NO MAN DIFF REQ WBC (4.8 - 10.8 /CUMM) 5.5 4.3 L RBC (4.70 - 6.10 /CUMM) 4.16 L 3.88 L Hgb (14.0 - 18.0 G/DL) 12.6 L 11.8 L Hct (42 - 52 %) 37.6 L 35.4 L MCV (80.0 - 94.0 FL) 90.5 91.1 MCH (27.0 - 31.0 PG) 30.3 30.4 MCHC (33.0 - 37.0 G/DL) 33.5 33.4 RDW (11.5 - 14.5 %) 13.4 13.2 Plt Count (130 - 400 /CUMM) 196 194 MPV (7.4 - 10.4 FL) 9.7 9.4 Gran % (42.2 - 75.2 %) 64.5 43.7 Lymphocytes % (20.5 - 51.1 %) 16.6 L 27.5 Monocytes % (1.7 - 9.3 %) 9.1 15.0 H Eosinophils % (0 - 5 %) 9.4 H 13.2 H Basophils % (0.0 - 2.0 %) 0.4 0.6 Absolute Granulocytes (1.4 - 6.5 /CUMM) 3.6 1.9 Absolute Lymphocytes (1.2 - 3.4 /CUMM) 0.9 L 1.2 Absolute Monocytes (0.10 - 0.60 /CUMM) 0.5 0.6 Absolute Eosinophils (0.0 - 0.7 /CUMM) 0.5 0.6 Absolute Basophils (0.0 - 0.2 /CUMM) 0 0 10/25 10/25 1900 1637 Chemistry Sodium (137 - 145 mmol/L) 139 Potassium (3.5 - 5.1 mmol/L) 4.6 Chloride (98 - 107 mmol/L) 98 Carbon Dioxide (22 - 30 mmol/L) 28 Anion Gap (5 - 16) 14 BUN (9 - 20 mg/dL) 15 Creatinine (0.7 - 1.2 mg/dL) 1.0 Estimated GFR (>60 ml/min) > 60 BUN/Creatinine Ratio (7 - 25 %) 15.0 Glucose (65 - 99 mg/dL) 177 H Lactic Acid (0.7 - 2.1 mmol/L) 1.2 1.7 Calcium (8.4 - 10.2 mg/dL) 9.7 Troponin I (<0.11 ng/ml) < 0.01 Hematology CBC w Diff NO MAN DIFF REQ WBC (4.8 - 10.8 /CUMM) 8.1 RBC (4.70 - 6.10 /CUMM) 4.66 L Hgb (14.0 - 18.0 G/DL) 14.1 Hct (42 - 52 %) 42.4 MCV (80.0 - 94.0 FL) 91.0 MCH (27.0 - 31.0 PG) 30.2 MCHC (33.0 - 37.0 G/DL) 33.2 RDW (11.5 - 14.5 %) 13.0 Plt Count (130 - 400 /CUMM) 277 MPV (7.4 - 10.4 FL) 9.4 Gran % (42.2 - 75.2 %) 67.8 Lymphocytes % (20.5 - 51.1 %) 17.5 L Monocytes % (1.7 - 9.3 %) 8.4 Eosinophils % (0 - 5 %) 6.1 H Basophils % (0.0 - 2.0 %) 0.2 Absolute Granulocytes (1.4 - 6.5 /CUMM) 5.5 Absolute Lymphocytes (1.2 - 3.4 /CUMM) 1.4 Absolute Monocytes (0.10 - 0.60 /CUMM) 0.7 H Absolute Eosinophils (0.0 - 0.7 /CUMM) 0.5 Absolute Basophils (0.0 - 0.2 /CUMM) 0 Diagnostic Data EKG Results Normal sinus rhythm with nonspecific ST-T changes. Unchanged from previously Assessment/Plan Assessment/Plan Assessment: 1. Colovesicular fistula 2. History of coronary artery disease, status post multiple stents, clinically stable 3. Hypertension 4. Hyperlipidemia Recommendations: -At the present time, the patient appears to be stable from a cardiac perspective. He has no symptoms despite an excellent aerobic activity level. His ECG is unchanged. His examination is essentially normal. At the present time, I do not see any reason that the patient should not be able to undergo his surgery as planned on Saturday. -Dr. Qureshi will resume the care of the patient tomorrow. He is Dr. Rodriguez's partner and will have access to the patient's outside records, stress test, etc. -Continue current medication regimen for now. Antiplatelets on hold. -Please call me if there are any changes. Consult Acknowledgment - Thank you for your consult request.
--- NOTE | 2017-10-27 18:50 | PN- General Surgery ---
Subjective Subjective: Follow-up complicated sigmoid diverticulitis with colovesical fistula urine in the [place] remains grossly clear no new abdominal pain no nausea no fevers no sweats Objective Vital Signs and I&Os I reviewed Vital Signs Date Time Temp Pulse Resp B/P B/P Pulse O2 O2 Flow FiO2 Mean Ox Delivery Rate 10/27 1441 98.3 74 20 102/64 95 Room Air 10/27 0642 97.4 66 16 106/74 91 Room Air 10/26 2058 72 102/62 10/26 2057 72 102/62 10/27 2055 97.7 72 18 102/62 92 I reviewed Intake & Output 10/27 1600 10/27 0800 10/27 0000 10/26 1600 10/26 0800 10/26 0000 Intake Total 2100 306 209 2546 500 100 Output Total 1525 500 500 700 500 Balance 575 200 -100 750 0 100 Intake, IV 600 600 300 600 400 100 Intake, Oral 1500 100 100 850 100 Output, Urine 1525 500 500 700 500 Patient 214 lb 207 lb Weight Weight Bed scale Bed scale Measurement Method Physical Exam: Constitutional: no acute distress no pain Eyes: sclera anicteric ENMT: moist mucous membranes Cardiovascular: S1-S2 no murmurs no peripheral edema Respiratory: clear to auscultation with normal respiratory effort and no intercostal retractions GI: abdomen soft nontender nondistended Extremities / lymphatics: free range of motion no peripheral edema Skin: no jaundice no rashes warm, nondiaphoretic Psychiatric: mood and affect are appropriate and alert and oriented to person place and time Current Medications: I reviewed Current Medications Sig/Michael Start time Last Medication Dose Route Stop Time Status Admin Acetaminophen 650 MG Q4P PRN 10/26 0030 AC PO Ampicillin Sodium/ 3,000 MG Q6H 10/26 0400 AC 10/27 Sulbactam Sodium IV 1658 Sodium Chloride 100 ML Aspirin Buffered 81 MG DAILY 10/26 0900 DC 10/27 PO 0842 Atorvastatin Calcium 40 MG 1700 10/26 1700 AC 10/27 PO 1657 Carvedilol 1.5625 MG BID 10/26 09 AC 10/27 PO 0843 Heparin Sodium 5,000 UNIT Q8 10/26 0600 AC 10/27 (Porcine) SC 1442 Lisinopril 2.5 MG DAILY 10/26 09 AC 10/27 PO 0842 Oxycodone/ 1 TAB Q4P PRN 10/26 0030 AC 10/27 Acetaminophen PO 1658 Oxycodone/ 2 TAB Q4P PRN 10/26 0030 10/26 Acetaminophen PO 1501 Sodium Chloride 1,000 ML Q13H 10/26 0030 AC 10/26 IV 1502 Tamsulosin HCl 0.4 MG AT BEDTIME 10/26 2100 AC 10/26 PO 2058 Results Last 48 Hours of Labs: I reviewed Laboratory Tests 10/27 10/26 0745 0800 Hematology CBC w Diff NO MAN DIFF REQ NO MAN DIFF REQ WBC (4.8 - 10.8 /CUMM) 5.5 4.3 L RBC (4.70 - 6.10 /CUMM) 4.16 L 3.88 L Hgb (14.0 - 18.0 G/DL) 12.6 L 11.8 L Hct (42 - 52 %) 37.6 L 35.4 L MCV (80.0 - 94.0 FL) 90.5 91.1 MCH (27.0 - 31.0 PG) 30.3 30.4 MCHC (33.0 - 37.0 G/DL) 33.5 33.4 RDW (11.5 - 14.5 %) 13.4 13.2 Plt Count (130 - 400 /CUMM) 196 194 MPV (7.4 - 10.4 FL) 9.7 9.4 Gran % (42.2 - 75.2 %) 64.5 43.7 Lymphocytes % (20.5 - 51.1 %) 16.6 L 27.5 Monocytes % (1.7 - 9.3 %) 9.1 15.0 H Eosinophils % (0 - 5 %) 9.4 H 13.2 H Basophils % (0.0 - 2.0 %) 0.4 0.6 Absolute Granulocytes (1.4 - 6.5 /CUMM) 3.6 1.9 Absolute Lymphocytes (1.2 - 3.4 /CUMM) 0.9 L 1.2 Absolute Monocytes (0.10 - 0.60 /CUMM) 0.5 0.6 Absolute Eosinophils (0.0 - 0.7 /CUMM) 0.5 0.6 Absolute Basophils (0.0 - 0.2 /CUMM) 0 0 10/25 1900 Chemistry Lactic Acid (0.7 - 2.1 mmol/L) 1.2 Assessment/Plan Assessment/Plan Impression is sigmoid diverticulitis complicated with fistula to bladder on IV antibiotics stable appreciate urology and put plan for cardiology evaluation preoperatively bowel prep tomorrow surgery Saturday including cystoscopy and ureteral stents keep on clear liquids for now Problem List: 1. [place]-vesical fistula 2. Diverticulitis Core Measures Venous Thromboembolism VTE Risk Factors Age>40 No Mechanical VTE Prophylaxis d/t N/A MechProphylax Ordered No VTE Pharm Prophylaxis d/t NA PharmProphylax ordered
[2017-10-27 20:25] VITALS: BP 128/78
[2017-10-28 06:00] VITALS: BP 130/74
--- NOTE | 2017-10-28 08:08 | PN- General Surgery ---
Subjective Subjective: Patient reports a headache and anxiety this morning. He reports intermittent pain is his right lower quadrant which he describes as stabbing. He is tolerating clears without nausea or vomiting and reports ambulating. He denies fever or chills, chest pain or sob. Objective Vital Signs and I&Os Vital Signs Date Time Temp Pulse Resp B/P B/P Pulse O2 O2 Flow FiO2 Mean Ox Delivery Rate 10/28 599 98.4 79 18 130/74 93 Room Air 10/27 2028 63 128/78 10/28 2027 63 128/78 10/27 2024 99.3 63 18 128/78 94 Room Air 10/27 1441 98.3 74 20 102/64 95 Room Air Intake & Output 10/28 0000 10/27 1600 10/27 0810/27 0000 10/26 1600 Intake Total 400 2100 070 332 3660 Output Total 700 1500 1525 500 500 700 Balance -700 -1100 575 200 -100 750 Intake, IV 300 600 600 300 600 Intake, Oral 100 1500 100 100 850 Output, Urine 700 1500 1525 500 500 700 Patient 214 lb Weight Weight Bed scale Measurement Method Physical Exam: Gen - appears anxious in nad Cardiac - S1S2 noted Lungs - CTAB Abd - soft, mild distention, hypoactive bs, mildly tender in LLQ, no rebound or guarding noted - davis in place with clear urine Ext - no edema or calf tenderness Current Medications: Current Medications Sig/Michael Start time Last Medication Dose Route Stop Time Status Admin Acetaminophen 650 MG ONCE PRN 10/28 08 AC PO Acetaminophen 650 MG Q4P PRN 10/26 0030 AC PO Ampicillin Sodium/ 3,000 MG Q6H 10/26 0400 AC 10/28 Sulbactam Sodium IV 0317 Sodium Chloride 100 ML Aspirin Buffered 81 MG DAILY 10/26 09 DC 10/27 PO 0842 Atorvastatin Calcium 40 MG 1700 10/26 1700 AC 10/27 PO 1657 Carvedilol 1.5625 MG BID 10/26 899 AC 10/27 PO 202 Heparin Sodium 5,000 UNIT Q8 10/26 0600 AC 10/28 (Porcine) SC 0535 Lisinopril 2.5 MG DAILY 10/26 09 AC 10/27 PO 0842 Lorazepam 0.5 MG Q4P PRN 10/28 08 AC IV Oxycodone/ 1 TAB Q4P PRN 10/26 0030 AC 10/28 Acetaminophen PO 0649 Oxycodone/ 2 TAB Q4P PRN 10/26 0030 AC 10/26 Acetaminophen PO 1501 Sodium Chloride 1,000 ML Q13H 10/26 0030 AC 10/28 IV 0307 Tamsulosin HCl 0.4 MG AT BEDTIME 10/26 2100 AC 10/27 PO 2028 Results Last 48 Hours of Labs: Laboratory Tests 10/28 10/27 0607 0745 Chemistry Sodium Pending Potassium Pending Chloride Pending Carbon Dioxide Pending Anion Gap Pending BUN Pending Creatinine Pending BUN/Creatinine Ratio Pending Phosphorus Pending Magnesium Pending Hematology CBC w Diff Pending NO MAN DIFF REQ WBC (4.8 - 10.8 /CUMM) Pending 5.5 RBC (4.70 - 6.10 /CUMM) Pending 4.16 L Hgb (14.0 - 18.0 G/DL) Pending 12.6 L Hct (42 - 52 %) Pending 37.6 L MCV (80.0 - 94.0 FL) Pending 90.5 MCH (27.0 - 31.0 PG) Pending 30.3 MCHC (33.0 - 37.0 G/DL) Pending 33.5 RDW (11.5 - 14.5 %) Pending 13.4 Plt Count (130 - 400 /CUMM) Pending 196 MPV (7.4 - 10.4 FL) Pending 9.7 Gran % (42.2 - 75.2 %) 64.5 Lymphocytes % (20.5 - 51.1 %) 16.6 L Monocytes % (1.7 - 9.3 %) 9.1 Eosinophils % (0 - 5 %) 9.4 H Basophils % (0.0 - 2.0 %) 0.4 Absolute Granulocytes (1.4 - 6.5 /CUMM) 3.6 Absolute Lymphocytes (1.2 - 3.4 /CUMM) 0.9 L Absolute Monocytes (0.10 - 0.60 /CUMM) 0.5 Absolute Eosinophils (0.0 - 0.7 /CUMM) 0.5 Absolute Basophils (0.0 - 0.2 /CUMM) 0 Assessment/Plan Assessment/Plan 72 M with sigmoid diverticulitis and colovesical fistula who requires surgical intervention this admission Cont IV abx - unasyn Cont clears, npo after midnight Pain regimen prn Ativan for anxiety Tylenol for headache Home meds on board Keep davis in place Bowel prep for surgery tomorrow with cysto/stents F/u labs Appreicate cardiology and urology's involvement Will d/w Dr Paul Core Measures Venous Thromboembolism VTE Risk Factors Age>40 No Mechanical VTE Prophylaxis d/t N/A MechProphylax Ordered No VTE Pharm Prophylaxis d/t NA PharmProphylax ordered
[2017-10-28 08:32] LABS: ABSOLUTE BASOPHIL COUNT 0 /CUMM (0.0-0.2); ABSOLUTE EOSINOPHIL COUNT 0.5 /CUMM (0.0-0.7); ABSOLUTE GRANULOCYTE CT 2.6 /CUMM (1.4-6.5); ABSOLUTE MONOCYTE COUNT 0.5 /CUMM (0.10-0.60); BASOPHIL % 0.6 % (0.0-2.0); EOSINOPHIL % 11.3 % (0-5); GRANULOCYTE % 55.5 % (42.2-75.2); HEMATOCRIT 35.3 % (42-52); MEAN CORPUSCULAR HGB 30.6 PG (27.0-31.0); MEAN CORPUSCULAR HGB CONC 33.7 G/DL (33.0-37.0); MEAN CORPUSCULAR VOLUME 90.9 FL (80.0-94.0); MEAN PLATELET VOLUME 9.7 FL (7.4-10.4); PLATELET COUNT 181 /CUMM (130-400); RBC DISTRIBUTION WIDTH 13.5 % (11.5-14.5); RED BLOOD CELL CT 3.88 /CUMM (4.70-6.10); WHITE BLOOD CELL COUNT 4.6 /CUMM (4.8-10.8)
--- NOTE | 2017-10-28 11:45 | PN- Cardiology ---
Subjective Subjective: Patient is resting comfortably and continues to deny any chest pain, shortness of breath, or palpitations. Objective Vital Signs and I&Os Vital Signs Date Time Temp Pulse Resp B/P B/P Pulse O2 O2 Flow FiO2 Mean Ox Delivery Rate 10/28 08 79 108/62 10/28 08 79 108/62 10/28 08 96 Room Air 10/28 06 98.4 79 18 130/74 93 Room Air 10/27 2028 63 128/78 10/28 2027 63 128/78 10/27 2024 99.3 63 18 128/78 94 Room Air 10/27 1441 98.3 74 20 102/64 95 Room Air Intake & Output 10/28 1600 10/28 0810/28 0000 10/27 1600 10/27 0000 Intake Total 949 180 3545 700 400 Output Total 700 1500 1525 500 500 Balance 0 -1100 575 200 -100 Intake, IV 600 300 600 600 300 Intake, Oral 209 069 6789 100 100 Output, Urine 700 1500 1525 500 500 Patient 214 lb Weight Weight Bed scale Measurement Method Physical Exam: General: no apparent distress. Alert. Eyes: No obvious scleral icterus. HEENT: No jugular venous distention or abnormal jugular venous pulsations. Cardiovascular: Normal intensity S1/S2. PMI not grossly displaced. Respiratory: Lungs clear to auscultation bilaterally. Abdomen: Soft, nontender with no guarding or rebound tenderness. Musculoskeletal: No clubbing or cyanosis noted Skin: warm Neurologic: No gross focal deficits noted. Lymph: No gross lymphadenopathy. Current Medications: Current Medications Sig/Michael Start time Last Medication Dose Route Stop Time Status Admin Acetaminophen 650 MG ONCE PRN 10/28 08 DC 10/28 PO 0828 Acetaminophen 650 MG Q4P PRN 10/26 0030 AC PO Ampicillin Sodium/ 3,000 MG Q6H 10/26 0400 AC 10/28 Sulbactam Sodium IV 1050 Sodium Chloride 100 ML Aspirin Buffered 81 MG DAILY 10/26 09 DC 10/27 PO 0842 Atorvastatin Calcium 40 MG 1700 10/26 1700 AC 10/27 PO 1657 Carvedilol 1.5625 MG BID 10/26 09 AC 10/28 PO 0829 Heparin Sodium 5,000 UNIT Q8 10/26 06 AC 10/28 (Porcine) SC 0535 Lisinopril 2.5 MG DAILY 10/26 899 AC 10/28 PO 0828 Lorazepam 0.5 MG Q4P PRN 10/28 0800 AC 10/28 IV 0827 Metronidazole 500 MG 10/28 AC PO 10/28 220 Metronidazole 500 MG 1400 10/28 1400 AC PO 10/28 1401 Metronidazole 500 MG 1300 10/28 1300 AC PO 10/28 1301 Neomycin Sulfate 1,000 MG 10/28 2200 AC PO 10/28 2201 Neomycin Sulfate 1,000 MG 1400 10/28 1400 AC PO 10/28 1401 Neomycin Sulfate 1,000 MG 1300 10/28 1300 AC PO 10/28 1301 Oxycodone/ 1 TAB Q4P PRN 10/26 0030 AC 10/28 Acetaminophen PO 0649 Oxycodone/ 2 TAB Q4P PRN 10/26 0030 AC 10/26 Acetaminophen PO 1501 Polyethylene Glycol 1 GAL ONCE ONE 10/28 0900 DC 10/28 PO 10/28 0901 1050 Sodium Chloride 1,000 ML Q13H 10/26 0030 AC 10/28 IV 0307 Tamsulosin HCl 0.4 MG AT BEDTIME 10/26 2100 AC 10/27 PO 2028 Results Last 48 Hrs of Labs/Mics: Laboratory Tests 10/28/17 0607: Anion Gap 7, Estimated GFR > 60, BUN/Creatinine Ratio 14.4, Phosphorus 3.4, Magnesium 1.9, CBC w Diff NO MAN DIFF REQ, RBC 3.88 L, MCV 90.9, MCH 30.6, MCHC 33.7, RDW 13.5, MPV 9.7, Gran % 55.5, Lymphocytes % 21.7, Monocytes % 10.9 H, Eosinophils % 11.3 H, Basophils % 0.6, Absolute Granulocytes 2.6, Absolute Lymphocytes 1.0 L, Absolute Monocytes 0.5, Absolute Eosinophils 0.5, Absolute Basophils 0 10/27/17 0745: CBC w Diff NO MAN DIFF REQ, RBC 4.16 L, MCV 90.5, MCH 30.3, MCHC 33.5, RDW 13.4 , MPV 9.7, Gran % 64.5, Lymphocytes % 16.6 L, Monocytes % 9.1, Eosinophils % 9.4 H, Basophils % 0.4, Absolute Granulocytes 3.6, Absolute Lymphocytes 0.9 L, Absolute Monocytes 0.5, Absolute Eosinophils 0.5, Absolute Basophils 0 Recent Imaging Studies: Patient not currently on telemetry Assessment/Plan Assessment/Plan 1. Colovesicular fistula 2. History of coronary artery disease, status post multiple stents, clinically stable 3. Hypertension 4. Hyperlipidemia 5. History of atrial arrhythmia with prior ablation and not on anticoagulation by patient preference due to low a flutter/fib burden The patient remains hemodynamically stable with no evidence of acute coronary syndrome or decompensated congestive heart failure. His cardiac status is currently stable and he represents mildly elevated risk for planned surgery based on his cardiac history. Resume aspirin post surgery when cleared by the surgical team. Marcus Uerna MD [facility] Continue telemetry? Not applicable
[2017-10-28 14:52] VITALS: BP 110/80
--- NOTE | 2017-10-28 21:36 | PN- General Surgery ---
Subjective Subjective: Follow-up colovesical fistula Patient for preop bowel prep today, no nausea no increased pain, no sweats no cramps Objective Vital Signs and I&Os I reviewed Vital Signs Date Time Temp Pulse Resp B/P B/P Pulse O2 O2 Flow FiO2 Mean Ox Delivery Rate 10/28 2106 68 120/70 10/28 210 68 120/70 10/28 1452 97.4 62 20 110/80 93 Room Air 10/28 0829 79 108/62 10/28 0828 79 108/62 10/28 0800 96 Room Air 10/28 0600 98.4 79 18 130/74 93 Room Air I reviewed Intake & Output 10/28 1600 10/28 0800 10/28 0000 10/27 1600 10/27 0810/27 0000 Intake Total 600 116 278 7636 700 400 Output Total 2800 700 1500 1525 500 500 Balance -2200 0 -1100 575 200 -100 Intake, IV 600 300 600 600 300 Intake, Oral 600 477 766 4625 100 100 Output, Urine 2800 700 1500 1525 500 500 Patient 214 lb 214 lb Weight Weight Bed scale Measurement Method Physical Exam: Constitutional: no acute distress no pain Eyes: sclera anicteric ENMT: moist mucous membranes Cardiovascular: S1-S2 no murmurs no peripheral edema Respiratory: clear to auscultation with normal respiratory effort and no intercostal retractions GI: abdomen soft nontender nondistended Extremities / lymphatics: free range of motion no peripheral edema Skin: no jaundice no rashes warm, nondiaphoretic Psychiatric: mood and affect are appropriate and alert and oriented to person place and time Current Medications: I reviewed Current Medications Sig/Michael Start time Last Medication Dose Route Stop Time Status Admin Acetaminophen 650 MG ONCE PRN 10/28 0800 DC 10/28 PO 0828 Acetaminophen 650 MG Q4P PRN 10/26 0030 AC PO Ampicillin Sodium/ 3,000 MG Q6H 10/26 0400 AC 10/28 Sulbactam Sodium IV 1540 Sodium Chloride 100 ML Atorvastatin Calcium 40 MG 1700 10/26 1700 AC 10/28 PO 1743 Carvedilol 1.5625 MG BID 10/26 09 AC 10/28 PO 2106 Heparin Sodium 5,000 UNIT Q8 10/26 0600 AC 10/28 (Porcine) SC 1322 Lisinopril 2.5 MG DAILY 10/26 0900 AC 10/28 PO 0828 Lorazepam 0.5 MG Q4P PRN 10/28 0800 AC 10/28 IV 1745 Metronidazole 500 MG 0 10/28 2200 AC PO 10/28 2201 Metronidazole 500 MG 1400 10/28 1400 DC 10/28 PO 10/28 1401 1540 Metronidazole 500 MG 1300 10/28 1300 DC 10/28 PO 10/28 1301 1306 Neomycin Sulfate 1,000 MG 10/28 2200 AC PO 10/28 2201 Neomycin Sulfate 1,000 MG 1400 10/28 1400 DC 10/28 PO 10/28 1401 1540 Neomycin Sulfate 1,000 MG 1300 10/28 1300 DC 10/28 PO 10/28 1301 1306 Oxycodone/ 1 TAB Q4P PRN 10/26 0030 AC 10/28 Acetaminophen PO 2100 Oxycodone/ 2 TAB Q4P PRN 10/26 0030 AC 10/26 Acetaminophen PO 1501 Patient Medication 1 ED ONE ONE 10/28 194 DC Teaching ED 10/28 194 Polyethylene Glycol 1 GAL ONCE ONE 10/28 09 DC 10/28 PO 10/28 0901 1050 Sodium Chloride 1,000 ML Q13H 10/26 0030 10/28 IV 1743 Tamsulosin HCl 0.4 MG AT BEDTIME 10/26 2100 AC 10/28 PO 2105 Results Last 48 Hours of Labs: I reviewed Laboratory Tests 10/28 10/27 0607 0745 Chemistry Sodium (137 - 145 mmol/L) 143 Potassium (3.5 - 5.1 mmol/L) 4.1 Chloride (98 - 107 mmol/L) 106 Carbon Dioxide (22 - 30 mmol/L) 29 Anion Gap (5 - 16) 7 BUN (9 - 20 mg/dL) 13 Creatinine (0.7 - 1.2 mg/dL) 0.9 Estimated GFR (>60 ml/min) > 60 BUN/Creatinine Ratio (7 - 25 %) 14.4 Phosphorus (2.5 - 4.5 mg/dL) 3.4 Magnesium (1.6 - 2.3 mg/dL) 1.9 Hematology CBC w Diff NO MAN DIFF REQ NO MAN DIFF REQ WBC (4.8 - 10.8 /CUMM) 4.6 L 5.5 RBC (4.70 - 6.10 /CUMM) 3.88 L 4.16 L Hgb (14.0 - 18.0 G/DL) 11.9 L 12.6 L Hct (42 - 52 %) 35.3 L 37.6 L MCV (80.0 - 94.0 FL) 90.9 90.5 MCH (27.0 - 31.0 PG) 30.6 30.3 MCHC (33.0 - 37.0 G/DL) 33.7 33.5 RDW (11.5 - 14.5 %) 13.5 13.4 Plt Count (130 - 400 /CUMM) 181 196 MPV (7.4 - 10.4 FL) 9.7 9.7 Gran % (42.2 - 75.2 %) 55.5 64.5 Lymphocytes % (20.5 - 51.1 %) 21.7 16.6 L Monocytes % (1.7 - 9.3 %) 10.9 H 9.1 Eosinophils % (0 - 5 %) 11.3 H 9.4 H Basophils % (0.0 - 2.0 %) 0.6 0.4 Absolute Granulocytes (1.4 - 6.5 /CUMM) 2.6 3.6 Absolute Lymphocytes (1.2 - 3.4 /CUMM) 1.0 L 0.9 L Absolute Monocytes (0.10 - 0.60 /CUMM) 0.5 0.5 Absolute Eosinophils (0.0 - 0.7 /CUMM) 0.5 0.5 Absolute Basophils (0.0 - 0.2 /CUMM) 0 0 Assessment/Plan Assessment/Plan 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 I explained that there is a risk of anastomotic leak and another colostomy, also infection, injury to surrounding structures such as bowel and blood vessels and ureters. We also discussed the potential risks, benefits and alternatives to the procedure and surgery in general, issues that included but were not limited to, anesthetic risk, hemorrhage requiring transfusion, the risk of transfusion itself, infection, heart attack, stroke, . I explained the importance of stopping smoking as it pertains to surgery, especially with general anesthesia and healing. E completion of cardiac clearance. Continue clear liquids to her bowel prep plan is surgery tomorrow. Core Measures Venous Thromboembolism VTE Risk Factors Age>40 No Mechanical VTE Prophylaxis d/t N/A MechProphylax Ordered No VTE Pharm Prophylaxis d/t NA PharmProphylax ordered
[2017-10-28 22:12] VITALS: BP 120/70
[2017-10-29 06:08] VITALS: BP 118/72
--- NOTE | 2017-10-29 08:43 | PN- General Surgery ---
Subjective Subjective: Patient doing fair today. Persists with pain in his abdomen and finds the davis catheter nearly intolerable. Denies any other new issues or complaints. Objective Vital Signs and I&Os Vital Signs Date Time Temp Pulse Resp B/P B/P Pulse O2 O2 Flow FiO2 Mean Ox Delivery Rate 10/29 0836 64 98/62 10/29 0836 64 98/62 10/29 0608 97.9 79 20 118/72 94 Room Air 10/28 2212 98.4 64 16 120/70 96 Room Air 10/28 2106 68 120/70 10/28 2105 68 120/70 10/28 1452 97.4 62 20 110/80 93 Room Air Intake & Output 10/29 1600 10/29 0800 10/29 0000 10/28 1600 10/28 0800 10/28 0000 Intake Total 800 600 600 700 400 Output Total 675 1800 2800 700 1500 Balance 125 -1200 -2200 0 -1100 Intake, IV 800 600 600 300 Intake, Oral 0 600 100 100 Number 1 1 Bowel Movements Output, Urine 675 1800 2800 700 1500 Patient 214 lb Weight Physical Exam: General: A, A, NAD Abdomen: Mild to moderate distention, ttp in the LLQ w/o R/G : Davis in place draining brown feculent urine with stool sediment noted Extremities: No clubbing, cyanosis or edema Current Medications: Current Medications Sig/Michael Start time Last Medication Dose Route Stop Time Status Admin Acetaminophen 650 MG Q4P PRN 10/26 0030 AC 10/29 PO 0833 Ampicillin Sodium/ 3,000 MG Q6H 10/26 0400 AC 10/29 Sulbactam Sodium IV 0925 Sodium Chloride 100 ML Atorvastatin Calcium 40 MG 1700 10/26 1700 AC 10/28 PO 1743 Carvedilol 1.5625 MG BID 10/26 09 AC 10/29 PO 0836 Heparin Sodium 5,000 UNIT Q8 10/26 06 AC 10/29 (Porcine) SC 0653 Lisinopril 2.5 MG DAILY 10/26 09 AC 10/29 PO 0836 Lorazepam 0.5 MG Q4P PRN 10/28 08 AC 10/29 IV 0649 Metronidazole 500 MG 2200 10/28 2200 DC 10/28 PO 10/28 2201 2323 Metronidazole 500 MG 1400 10/28 1400 DC 10/28 PO 07/16 1401 1540 Metronidazole 500 MG 1300 10/28 1300 DC 10/28 PO 10/28 1301 1306 Neomycin Sulfate 1,000 MG 2200 10/28 2200 DC 10/28 PO 10/28 2201 2323 Neomycin Sulfate 1,000 MG 1400 10/28 1400 DC 10/28 PO 10/28 1401 1540 Neomycin Sulfate 1,000 MG 1300 /16 1300 DC 10/28 PO 10/28 1301 1306 Oxycodone/ 1 TAB Q4P PRN 10/26 0030 AC 10/29 Acetaminophen PO 0649 Oxycodone/ 2 TAB Q4P PRN 10/26 0030 AC 10/26 Acetaminophen PO 1501 Patient Medication 1 ED ONE ONE 10/28 1945 DC Teaching ED 10/28 194 Sodium Chloride 1,000 ML Q13H 10/26 0030 AC 10/28 IV 1743 Tamsulosin HCl 0.4 MG AT BEDTIME 10/26 2100 AC 10/28 PO 2105 Results Last 48 Hours of Labs: Laboratory Tests 10/28 06 Chemistry Sodium (137 - 145 mmol/L) 143 Potassium (3.5 - 5.1 mmol/L) 4.1 Chloride (98 - 107 mmol/L) 106 Carbon Dioxide (22 - 30 mmol/L) 29 Anion Gap (5 - 16) 7 BUN (9 - 20 mg/dL) 13 Creatinine (0.7 - 1.2 mg/dL) 0.9 Estimated GFR (>60 ml/min) > 60 BUN/Creatinine Ratio (7 - 25 %) 14.4 Phosphorus (2.5 - 4.5 mg/dL) 3.4 Magnesium (1.6 - 2.3 mg/dL) 1.9 Hematology CBC w Diff NO MAN DIFF REQ WBC (4.8 - 10.8 /CUMM) 4.6 L RBC (4.70 - 6.10 /CUMM) 3.88 L Hgb (14.0 - 18.0 G/DL) 11.9 L Hct (42 - 52 %) 35.3 L MCV (80.0 - 94.0 FL) 90.9 MCH (27.0 - 31.0 PG) 30.6 MCHC (33.0 - 37.0 G/DL) 33.7 RDW (11.5 - 14.5 %) 13.5 Plt Count (130 - 400 /CUMM) 181 MPV (7.4 - 10.4 FL) 9.7 Gran % (42.2 - 75.2 %) 55.5 Lymphocytes % (20.5 - 51.1 %) 21.7 Monocytes % (1.7 - 9.3 %) 10.9 H Eosinophils % (0 - 5 %) 11.3 H Basophils % (0.0 - 2.0 %) 0.6 Absolute Granulocytes (1.4 - 6.5 /CUMM) 2.6 Absolute Lymphocytes (1.2 - 3.4 /CUMM) 1.0 L Absolute Monocytes (0.10 - 0.60 /CUMM) 0.5 Absolute Eosinophils (0.0 - 0.7 /CUMM) 0.5 Absolute Basophils (0.0 - 0.2 /CUMM) 0 Assessment/Plan Assessment/Plan This is a 72 M with acute sigmoid diverticulitis and colovesical fistula who requires surgical intervention, plan for OR today Cont IV abx - unasyn NPO/IVF Pain regimen prn Ativan for anxiety Tylenol for headache Home meds on board Keep davis in place Appreicate cardiology and urology's input Case d/w Dr Paul All patients and families questions were answered related to the surgery and likely postoperative course Problem List: 1. Diverticulitis 2. [place]-vesical fistula Core Measures Venous Thromboembolism VTE Risk Factors Age>40 No Mechanical VTE Prophylaxis d/t N/A MechProphylax Ordered No VTE Pharm Prophylaxis d/t NA PharmProphylax ordered
--- NOTE | 2017-10-29 10:37 | Admission Core Measures ---
Acute Coronary Syndrome (CM) ACS Core Measures Acute Coronary Syndrome Diagnosis No Congestive Heart Failure (NEW) CHF Core Measures Congestive Heart Failure Diagnosis No Cerebrovascular Accident CVA Core Measures CVA/TIA Diagnosis No Venous Thromboembolism VTE Core Ttae (View Protocol) VTE Risk Factors Age>40 No Mechanical VTE Prophylaxis d/t N/A MechProphylax Ordered No VTE Pharm Prophylaxis d/t NA PharmProphylax ordered Problem List As ranked by this Provider includes Assessment & Plan 1. Diverticulitis 2. [place]-vesical fistula HOME MEDS Home Med List Aspirin (Ecotrin*) 81 MG TABLET.DR 1 TAB PO DAILY HEART/BLOOD (Reported) Carvedilol (Coreg) 3.125 MG TABLET 0.5 TAB PO BID HEART/BP (Reported) Ciprofloxacin HCl 500 MG TABLET 1 TAB PO BID UTI (Reported) Lisinopril 2.5 MG TABLET 1 TAB PO DAILY BP (Reported) Rosuvastatin Calcium (Crestor) 10 MG TABLET 1 TAB PO DAILY CHOLESTEROL ( Reported) Tamsulosin HCl (Flomax) 0.4 MG CAP.ER.24H 1 CAP PO DAILY PROSTATE (Reported)
--- NOTE | 2017-10-29 10:42 | Patient Discharge Instructions ---
Discharge Instructions General Discharge Information You were seen/treated for: Diverticulitis Watch for these problems: Bleeding, infection, cough, chest pain, shortness of breath, increased abdominal pain, nausea, vomiting, excessive diarrhea, no bowel movements, redness, swelling or unusual drainage from incisions, or any other problems, questions or concerns Call Surgeon to remove: wound ck Do not soak the wound: Yes Daily wet to dry dressings: No No bath, but you may shower: Yes Special Instructions: Pain medication: Please take tylenol every 8 hours as directed while having pain. Oxycodone is available as needed if the tylenol alone is ineffective. When possible, discontinue the use of oxycodone, then as your pain continues to improve, discontinue the use of tylenol. Follow up: Dr Adler, urology, will see you in the office on Saturday11/06/17 for evaluation of your bladder. Please call his office today to arrange that appointment. Diet Continue normal diet: Yes Recommended Diet: Low Residue Activity Full Activity/No Limits: No Activity Self Limited: Yes Pounds, do NOT lift more than: 10 (no >10lbs x 2 weeks) Activity Limited to: Weight bear as tolerated Acute Coronary Syndrome Inclusion Criteria At DC or during hospital stay patient has or had the following: ACS DIAGNOSIS No Discharge Core Measures Meds if any: Prescribed or Continued at Discharge Meds if any: NOT Prescribed or Continued at Discharge Congestive Heart Failure Inclusion Criteria At DC or during hospital stay patient has or had the following: CHF DIAGNOSIS No Discharge Core Measures Meds if any: Prescribed or Continued at Discharge Meds if any: NOT Prescribed or Continued at Discharge Cerebrovascular accident Inclusion Criteria At DC or during hospital stay patient has or had the following: CVA/TIA Diagnosis No Discharge Core Measures Meds if any: Prescribed or Continued at Discharge Meds if any: NOT Prescribed or Continued at Discharge Venous thromboembolism Inclusion Criteria VTE Diagnosis No VTE Type NONE VTE Confirmed by (Test) NONE Discharge Core Measures - Per Current guidelines, there needs to be overlap - treatment for the first 5 days of Warfarin therapy. - If discharged on Warfarin prior to 5 days of - overlap therapy, the patient will need to be - assessed for post discharge needs including - *Post discharge parental anticoagulation - *Warfarin and/or parental anticoagulation education - *Follow up date to check INR post discharge At least 5 days overlap therapy as Inpatient No Meds if any: Prescribed or Continued at Discharge Note: Overlap Therapy is Warfarin and Anticoagulant Meds if any: NOT Prescribed or Continued at Discharge
[2017-10-29 10:50] VITALS: BP 100/70
--- NOTE | 2017-10-29 10:50 | Surgical Discharge Summary ---
Visit Information Visit Dates Admission Date: 10/25/17 Discharge Date: 10/29/17 History of Present Illness Chief Complaint: Urine Infection Medical History Blood Transfusion Hx: No Neurological: NONE EENT: hearing loss, TINNITIS Cardiovascular: hypertension, hyperlipidemia, CARDIAC STENTS Respiratory: NONE Gastrointestinal: NONE Hepatic: NONE Renal: NONE Musculoskeletal: NONE Psychiatric: NONE Endocrine: NONE Blood Disorders: NONE Cancer(s): NONE DEFENSIVE SECONDARY COACH/Reproductive: ENLARGED PROSTATE History of MRSA: No History of VRE: No History of CDIFF: No Isolation History: Standard Surgical History Pertinent Surgical History: bilateral carpal tunnel Psychosocial History Where Do You Live? Home Who Do You Live With? Spouse Services at Home: None What is Your Primary Language? Greek ETOH Use: denies use Review of Systems: as per H&P Hospital Course Course Attending Physician: Joseph WELLS,William Pimentel Primary Care Physician: Yesica WELLS,[place] Hospital Course: This is a 72-year-old nondiabetic nonsmoker with a remote history of an MA not on anticoagulants had a colonoscopy in July they saw 2 benign polyps and question of some mild signs of sigmoid diverticulitis felt not need to be treated, then shortly after that he started having a urinary infection has been on 3 different antibiotics even admitted at another hospital for urosepsis briefly but he came here last night because the urine is becoming browner also it hurts for him to be especially at his prostate which is enlarged he's on Flomax, he was also seeking a second opinion from urology and has an appointment is also noted occasional air bubbles while he is being overall this is been going on for a few weeks otherwise no fever shakes chills no abdominal pain throughout this episode he never had diverticulitis before denies any significant changes in his bowel habits constipation or diarrhea no nausea no cramping he's tolerating diet no shortness of breath no chest pain no recent flulike symptoms no bleeding per rectum and no gross hematuria. I've reviewed the [facility]. No history of GERD, PUD, bleeding problems, heart disease or issues with anesthesia. Past surgical history no prior abdominal surgery, family history no diabetes or cancer. Workup was obtained and revealed complicated sigmoid diverticulitis with a colovesical fistula. He was admitted to the surgical service under the care of Dr. Ruiz. He was made NPO, placed on IVF and IV abx in the form of Unasyn. He was seen for perioperative planning by Urology and Cardiology. Once plan was synchronized by surgery, and cardiology preperations were made to proceed to the operating room. On 10/29/17 he underwent..................................................................... .... Patient tolerated the procedure well. Postoperative course was uncomplicated. Diet was advanced in a stepwise fashion as bowel function returned. On POD#......................he was deemed appropriate for discharge. At this time he was ambulating, voiding, tolerating a low fiber diet, and was on PO analgesia. Plan is for the patient to see Dr. Ruiz within 1-2 weeks as an outpatient. Full details of his hospital course, operative report and diagnostic studies can be found in his electronic chart. Allergies: Coded Allergies: digoxin (JAUNDICE 10/25/17) flecainide (JAUNDICE 10/25/17) Disposition Summary Disposition Principal Diagnosis: Sigmoid Diverticulitis with Colovesicula Fistula Additional Diagnosis: none Discharge Disposition: home or self care Discharge Instructions General Discharge Information Code Status: Full Code Patient's Diet: Low Fiber Patient's Activity: as tolerated Follow-Up Instructions/Appts: See electronic discharge instructions Medications at Discharge Discharge Medications: Stop taking the following medications: Ciprofloxacin HCl (Ciprofloxacin HCl) 500 MG TABLET ORAL TWICE DAILY Qty = 28 Continue taking these medications: Aspirin (Ecotrin*) 81 MG TABLET. 1 Tablet ORAL DAILY Comments: NOT GIVEN Carvedilol (Coreg) 3.125 MG TABLET 0.5 Tablet ORAL TWICE DAILY Comments: Last Taken: 11/04/17 Time: 1000 AM Tamsulosin HCl (Flomax) 0.4 MG CAP.ER.24H 1 Capsule ORAL DAILY Comments: Last Taken:11/03/17 Time: 5:30 PM Lisinopril (Lisinopril) 2.5 MG TABLET 1 Tablet ORAL DAILY Comments: Last Taken: 11/04/17 Time: 1000 AM Rosuvastatin Calcium (Crestor) 10 MG TABLET 1 Tablet ORAL DAILY Comments: SUBSTITUTED WITH LIPITOR Last Taken: 11/03/17 Time: 5:30 PM Start taking the following new medications: Acetaminophen (Tylenol Extra Strength) 500 MG TABLET 2 Tablet ORAL EVERY 8 HOURS Qty = 60 No Refills Oxycodone HCl (Roxicodone) 5 MG TABLET 1-2 Tablet ORAL EVERY 4-6 HOURS as needed for BREAKTHROUGH PAIN Qty = 36 No Refills Instructions: USE ONLY FOR BREAKTHROUGH PAIN IF TYLENOL INEFFECTIVE
--- NOTE | 2017-10-29 12:47 | Operative Report ---
Operative/Inv Procedure Report Surgery Date: 10/29/17 Name of Procedure: cystoscopy: bilateral stent insertion Pre-Operative Diagnosis: colo-vescial fistula Post-Operative Diagnosis: same Estimated Blood Loss: scant Surgeon/Mosaic Technician: MD Vitor, Butler-urology Anesthesia: moderate sedation Drains: 18 fr davis Specimens: none Complications: none Operative/Procedure Note Note: The patient was taken to the operating room and placed on the OR table in supine position. Timeout was performed, with the patient awake, in order to confirm identity, procedure, antibiotics, anesthesia, and other pertinent information. The davis catheter was removed. After adequate anesthesia, and antibiotics; the patient was placed in lithotomy stirrups, draped and prepped, in the usual surgical fashion. A 22 Citizen [place] cystoscope sheath with 30 angle lens was inserted into the urethra without difficulty. Upon entering the prostatic urethra, the prostate was noted to have mild prostate enlargement. Upon entering the bladder, the bladder was noted to be free of tumor, free of stone, with bilateral clear reflux, from bilateral ureteral orifices. A small left wall/dome fistula was clearly visible with bowel/mucus draining from it-into the bladder. Under direct visualization the left orifice was intubated with a 0.35 Solo wire, which was advanced into the left renal pelvis where it coiled, without difficulty. A 6 x 24 Bard onlay stent was railroaded over these wire, and advanced easily into the left renal pelvis without difficulty. With the proximal coil in the renal pelvis, seen fluoroscopically, and the distal coil seen in the bladder, the wire was removed leaving the stent in proper place. The 0.35 Solo wire was then used to intubate the right ureteral orifice, and advanced into the right renal pelvis without difficulty. A second 6 x 24 Bard onlay stent was railroaded over this wire. The stent was advanced over the wire into the right renal pelvis and ureter without difficulty. With the proximal coil visualized fluoroscopically in the right renal pelvis, and the distal coil visualized in the bladder cystoscopically, the wire was removed, leaving the stent in proper place. The bladder was left full, and the cystoscope lens was then removed without difficulty leaving both stents in proper place. An 18 Citizen [place] Davis catheter was inserted into the bladder without significant difficulty, draining clear fluid. 10 mL of sterile water was placed into the balloon. All sponge, needle, and instrument count, were correct at the end of the case. The patient tolerated procedure well, and was taken to the recovery room, for the next stage of his surgery. Both stents and Davis will be removed at a later date. Discharge Disposition: PACU Additional Comments: Pt to proceed with Dr. Ruiz bowel resection: aided by bilateral stents for ureter localization/ID CC: Adrian Adler MD
[2017-10-29 14:20] VITALS: BP 102/70
--- NOTE | 2017-10-29 15:28 | PN- Urology ---
Surgical Brief Attending Note Brief Attending Note: post cystoscopy hematuria: manually irrigate davis with 50cc sterile water PRN gross hematuria/clot q 4 hours and PRN.
--- NOTE | 2017-10-29 16:24 | RADIOLOGY REPORT ---
EXAMINATION: CR ABDOMEN/INTRAOPERATIVE FLUOROSCOPY CLINICAL INDICATION: Left cystoscopy in OR. COMPARISON: CT scan of the abdomen and pelvis dated 10/25/2017. TECHNIQUE/FINDINGS: Fluoroscopic equipment was dedicated to the operating room for the performance of an intraoperative procedure. Several (6) spot films were acquired and are archived in PACS. Please refer to operative notes for procedural detail. FLUOROSCOPY TIME: 0.8 minutes. IMPRESSION: Administrative dictation for intraoperative fluoroscopy and image archiving in PACS. Please refer to operative notes for details.
[2017-10-29 23:00] VITALS: BP 120/70
--- NOTE | 2017-10-30 00:55 | PN- General Surgery ---
See Addendum Subjective Subjective: Patient doing well since arriving from ICU back to the floor. Pain is well- controlled and he denies any other issues or complaints. Nursing reports no other concerns. Objective Vital Signs and I&Os Vital Signs Date Time Temp Pulse Resp B/P B/P Pulse O2 O2 Flow FiO2 Mean Ox Delivery Rate 10/29 1600 98 Nasal 1.0L Cannula 10/29 1600 97 Nasal 1.0L Cannula 10/29 1456 96 Nasal 2.0L Cannula 10/29 1420 97.4 68 12 102/70 98 Nasal 2.0L Cannula 10/29 1050 98.0 64 20 100/70 94 Room Air 10/29 0836 64 98/62 10/29 0836 64 98/62 10/29 0800 Room Air 10/29 0608 97.9 79 20 118/72 94 Room Air Intake & Output 10/30 0800 10/30 0000 10/29 1600 10/29 0800 10/29 0000 10/28 1600 Intake Total 600 800 600 600 Output Total 3992 967 0278 2800 Balance -500 125 -1200 -2200 Intake, IV 600 800 600 Intake, Oral 0 600 Number 1 1 Bowel Movements Output, Urine 3811 763 8897 2800 Patient 214 lb Weight Physical Exam: Gen.: Drowsy but arousable, no acute distress Abdomen: Soft, focally tender to palpation, dressing is clean, dry, and intact except at the distal portion which has minimal sanguinous strikethrough Extremities: No clubbing, cyanosis, or edema Current Medications: Current Medications Sig/Michael Start time Last Medication Dose Route Stop Time Status Admin Acetaminophen 650 MG .STK-MED ONE 10/29 0823 DC PO 10/29 0824 Acetaminophen 650 MG Q4P PRN 10/26 0030 10/29 PO 0833 Ampicillin Sodium/ 3,000 MG Q6H 10/26 0400 AC 10/29 Sulbactam Sodium IV 2350 Sodium Chloride 100 ML Atorvastatin Calcium 40 MG 1700 10/26 1700 AC 10/29 PO 1644 Carvedilol 1.5625 MG BID 10/26 0900 AC 10/29 PO 0836 Fentanyl Citrate 100 MCG .STK-MED ONE 10/29 1130 DC IM 10/29 1131 Heparin Sodium 5,000 UNIT Q8 10/26 0600 AC 10/29 (Porcine) SC 0653 Hydromorphone HCl 2 MG .STK-MED ONE 10/29 1326 DC IM 10/29 1327 Hydromorphone HCl 2 MG .STK-MED ONE 10/29 1307 DC IM 10/29 1308 Hydromorphone HCl 2 MG .STK-MED ONE 10/29 1235 DC IM 10/29 1236 Ketorolac 30 MG .STK-MED ONE 10/29 1225 DC Tromethamine IM 10/29 1226 Lisinopril 2.5 MG DAILY 10/26 0900 10/29 PO 0836 Lorazepam 0.5 MG Q4P PRN 10/28 0800 10/29 IV 0649 Midazolam HCl 2 MG .STK-MED ONE 10/29 1130 DC IM 10/29 1131 Morphine Sulfate 2 MG Q3P PRN 10/29 2245 AC IV Morphine Sulfate 4 MG Q3P PRN 10/29 2245 AC IV Oxycodone/ 1 TAB Q4P PRN 10/26 0030 10/29 Acetaminophen PO 0649 Oxycodone/ 2 TAB Q4P PRN 10/26 0030 10/26 Acetaminophen PO 1501 Potassium Chloride 20 MEQ Q9H 10/29 2245 10/29 Dextrose/Sodium 1,000 ML IV 2352 Chloride Sodium Chloride 1,000 ML Q13H 10/26 0030 ND 10/28 IV 1743 Tamsulosin HCl 0.4 MG AT BEDTIME 10/26 2100 10/28 PO 2105 Results Last 48 Hours of Labs: Laboratory Tests 10/28 0607 Chemistry Sodium (137 - 145 mmol/L) 143 Potassium (3.5 - 5.1 mmol/L) 4.1 Chloride (98 - 107 mmol/L) 106 Carbon Dioxide (22 - 30 mmol/L) 29 Anion Gap (5 - 16) 7 BUN (9 - 20 mg/dL) 13 Creatinine (0.7 - 1.2 mg/dL) 0.9 Estimated GFR (>60 ml/min) > 60 BUN/Creatinine Ratio (7 - 25 %) 14.4 Phosphorus (2.5 - 4.5 mg/dL) 3.4 Magnesium (1.6 - 2.3 mg/dL) 1.9 Hematology CBC w Diff NO MAN DIFF REQ WBC (4.8 - 10.8 /CUMM) 4.6 L RBC (4.70 - 6.10 /CUMM) 3.88 L Hgb (14.0 - 18.0 G/DL) 11.9 L Hct (42 - 52 %) 35.3 L MCV (80.0 - 94.0 FL) 90.9 MCH (27.0 - 31.0 PG) 30.6 MCHC (33.0 - 37.0 G/DL) 33.7 RDW (11.5 - 14.5 %) 13.5 Plt Count (130 - 400 /CUMM) 181 MPV (7.4 - 10.4 FL) 9.7 Gran % (42.2 - 75.2 %) 55.5 Lymphocytes % (20.5 - 51.1 %) 21.7 Monocytes % (1.7 - 9.3 %) 10.9 H Eosinophils % (0 - 5 %) 11.3 H Basophils % (0.0 - 2.0 %) 0.6 Absolute Granulocytes (1.4 - 6.5 /CUMM) 2.6 Absolute Lymphocytes (1.2 - 3.4 /CUMM) 1.0 L Absolute Monocytes (0.10 - 0.60 /CUMM) 0.5 Absolute Eosinophils (0.0 - 0.7 /CUMM) 0.5 Absolute Basophils (0.0 - 0.2 /CUMM) 0 Assessment/Plan Assessment/Plan This is a 72 M with acute sigmoid diverticulitis and colovesical fistula who is status post open sigmoidectomy and colovesicular repair with cystoscopy and stent placement today Cont IV abx - unasyn NPO/IVF Pain regimen/antiemetics prn GI/DVT prophylaxis Ambulate/IS/turn, cough, and deep breathing techniques Home meds on board Keep davis in place, if decreased output initiate bladder irrigation Await return of bowel function Dressing change on postop day #2 Will d/w Dr. Paul Core Measures Venous Thromboembolism VTE Risk Factors Age>40 No Mechanical VTE Prophylaxis d/t N/A MechProphylax Ordered No VTE Pharm Prophylaxis d/t NA PharmProphylax ordered
[2017-10-30 01:34] VITALS: BP 134/76
[2017-10-30 06:00] VITALS: BP 122/68
[2017-10-30 08:29] LABS: ABSOLUTE BASOPHIL COUNT 0 /CUMM (0.0-0.2); ABSOLUTE EOSINOPHIL COUNT 0 /CUMM (0.0-0.7); ABSOLUTE GRANULOCYTE CT 6.6 /CUMM (1.4-6.5); ABSOLUTE LYMPH COUNT 0.3 /CUMM (1.2-3.4); ABSOLUTE MONOCYTE COUNT 0.4 /CUMM (0.10-0.60); BASOPHIL % 0 % (0.0-2.0); EOSINOPHIL % 0 % (0-5); HEMATOCRIT 38.2 % (42-52); MEAN CORPUSCULAR HGB 30.2 PG (27.0-31.0); MEAN CORPUSCULAR HGB CONC 33.1 G/DL (33.0-37.0); MEAN CORPUSCULAR VOLUME 91.3 FL (80.0-94.0); MEAN PLATELET VOLUME 9.6 FL (7.4-10.4); PLATELET COUNT 166 /CUMM (130-400); RBC DISTRIBUTION WIDTH 13.4 % (11.5-14.5); RED BLOOD CELL CT 4.18 /CUMM (4.70-6.10)
[2017-10-30 10:24] LABS: WHITE BLOOD CELL COUNT 7.3 /CUMM (4.8-10.8)
[2017-10-30 14:39] VITALS: BP 122/58
[2017-10-30 22:00] VITALS: BP 120/70
[2017-10-31 06:30] VITALS: BP 100/54
[2017-10-31 08:33] LABS: ABSOLUTE BASOPHIL COUNT 0 /CUMM (0.0-0.2); ABSOLUTE EOSINOPHIL COUNT 0.1 /CUMM (0.0-0.7); ABSOLUTE GRANULOCYTE CT 4.8 /CUMM (1.4-6.5); ABSOLUTE MONOCYTE COUNT 0.6 /CUMM (0.10-0.60); BASOPHIL % 0.3 % (0.0-2.0); EOSINOPHIL % 1.1 % (0-5); GRANULOCYTE % 73.7 % (42.2-75.2); HEMATOCRIT 33.8 % (42-52); MEAN CORPUSCULAR HGB 30.4 PG (27.0-31.0); MEAN CORPUSCULAR HGB CONC 33.5 G/DL (33.0-37.0); MEAN CORPUSCULAR VOLUME 90.9 FL (80.0-94.0); MEAN PLATELET VOLUME 9.8 FL (7.4-10.4); PLATELET COUNT 170 /CUMM (130-400); RBC DISTRIBUTION WIDTH 13.6 % (11.5-14.5); RED BLOOD CELL CT 3.72 /CUMM (4.70-6.10); WHITE BLOOD CELL COUNT 6.6 /CUMM (4.8-10.8)
--- NOTE | 2017-10-31 08:56 | PN- General Surgery ---
See Addendum Subjective Subjective: Awake, alert Complaining of post op abdominal pain - relievd with meds denies nausea and would like to drink/eat No flatus/bm Objective Vital Signs and I&Os Vital Signs Date Time Temp Pulse Resp B/P B/P Pulse O2 O2 Flow FiO2 Mean Ox Delivery Rate 10/31 0800 Nasal 2.0L Cannula 10/31 0630 98.8 68 18 100/54 96 Nasal Cannula 10/31 0600 95 Nasal 2.0L Cannula 10/31 0000 Nasal 2.0L Cannula 10/30 2200 98.2 75 18 120/70 97 Nasal 2.0L Cannula 10/30 2119 98.6 87 20 122/58 10/30 2119 98.6 87 20 122/58 10/30 1600 94 Nasal 2.0L Cannula 10/30 1439 98.6 87 20 122/58 94 10/30 1400 94 Nasal 2.0L Cannula 10/30 0901 88 100/60 10/30 0901 88 100/60 Intake & Output 10/31 1600 10/31 0800 10/31 0000 10/30 1600 10/30 0800 10/30 0000 Intake Total 880 440 770 660 0 Output Total 650 500 800 450 Balance 230 -60 -30 210 0 Intake, IV 880 440 770 660 Intake, Oral 0 0 Number 0 Bowel Movements Output, Urine 650 500 800 450 Physical Exam: vss, afebrile General: alert and oriented times three Chest: clear anteriorly bilaterally, RRR Abd: softly distended, tender around incision, scattered few bs heard but decreased Ext: warm no edema Wd: dressing dry Assessment/Plan Assessment/Plan 72yo male s/p cysto/stents/sigmoidectomy and cv fistula repair pod 2 await bowel function continue ivf hep sc for dvt ppx continue davis pain management Core Measures Venous Thromboembolism VTE Risk Factors Age>40 No Mechanical VTE Prophylaxis d/t N/A MechProphylax Ordered No VTE Pharm Prophylaxis d/t NA PharmProphylax ordered
[2017-10-31 14:06] VITALS: BP 130/64
[2017-10-31 22:24] VITALS: BP 112/60
[2017-11-01 06:46] VITALS: BP 105/60
--- NOTE | 2017-11-01 08:16 | PN- General Surgery ---
Pat Kate 11/01/17 0808: Subjective Subjective: Patient lying in bed, comfortable no flatus yet, tolarated clears last night without nausea Objective Vital Signs and I&Os Vital Signs Date Time Temp Pulse Resp B/P B/P Pulse O2 O2 Flow FiO2 Mean Ox Delivery Rate 11/01 0646 98.9 80 18 105/60 91 Nasal Cannula 10/31 2224 99.0 80 18 112/60 93 Room Air 10/31 2051 80 20 112/60 10/31 1406 98.3 84 18 130/64 93 Room Air 10/31 1400 93 Room Air 10/31 0917 98.8 68 18 100/54 10/31 0917 98.8 68 18 100/54 Intake & Output 11/01 1600 11/01 0811/01 0000 10/31 1600 10/31 0810/31 0000 Intake Total 130 900 880 440 Output Total 750 1300 750 650 500 Balance -620 -1300 150 230 -60 Intake, IV 10 880 880 440 Intake, Oral 120 20 Number 0 Bowel Movements Output, Urine 750 1300 750 650 500 lying in bed, alert and oriented heart-RRR chest- CTA symmetric ABD - rounded without distention, faint BS heard dressing changed- wound CDI calnes soft bilaterally Physical Exam: davis cath -no blood or clots in urine Current Medications: Current Medications Sig/Michael Start time Last Medication Dose Route Stop Time Status Admin Acetaminophen 650 MG Q4P PRN 10/26 0030 AC 10/30 PO 2334 Atorvastatin Calcium 40 MG 1700 / 1700 AC 10/31 PO 1612 Carvedilol 1.5625 MG BID 10/26 09 AC 10/31 PO 205 Heparin Sodium 5,000 UNIT Q8 10/26 0600 AC 11/01 (Porcine) SC 0613 Lisinopril 2.5 MG DAILY 10/26 09 AC 10/30 PO 0901 Lorazepam 0.5 MG Q4P PRN 10/28 08 AC 11/01 IV 0104 Morphine Sulfate 2 MG Q3P PRN 10/29 2245 AC IV Morphine Sulfate 4 MG Q3P PRN 10/29 2245 AC 11/01 IV 0104 Oxycodone/ 1 TAB Q4P PRN 10/26 0030 AC 10/31 Acetaminophen PO 0552 Oxycodone/ 2 TAB Q4P PRN 10/26 0030 AC 10/31 Acetaminophen PO 1308 Potassium Chloride 20 MEQ Q9H 10/29 2245 DC 10/31 Dextrose/Sodium 1,000 ML IV 1613 Chloride Sodium Chloride 2 SPRAY Q4P PRN 10/31 2014 AC NEDRA Tamsulosin HCl 0.4 MG AT BEDTIME 10/26 2099 AC 10/31 PO 2050 Results Last 48 Hours of Labs: Laboratory Tests 10/31 10/31 0633 0611 Chemistry Sodium (137 - 145 mmol/L) 140 Potassium (3.5 - 5.1 mmol/L) 4.3 Chloride (98 - 107 mmol/L) 105 Carbon Dioxide (22 - 30 mmol/L) 28 Anion Gap (5 - 16) 7 BUN (9 - 20 mg/dL) 13 Creatinine (0.7 - 1.2 mg/dL) 0.8 Estimated GFR (>60 ml/min) > 60 BUN/Creatinine Ratio (7 - 25 %) 16.3 Magnesium (1.6 - 2.3 mg/dL) 1.7 Hematology CBC w Diff NO MAN DIFF REQ WBC (4.8 - 10.8 /CUMM) 6.6 RBC (4.70 - 6.10 /CUMM) 3.72 L Hgb (14.0 - 18.0 G/DL) 11.3 L Hct (42 - 52 %) 33.8 L MCV (80.0 - 94.0 FL) 90.9 MCH (27.0 - 31.0 PG) 30.4 MCHC (33.0 - 37.0 G/DL) 33.5 RDW (11.5 - 14.5 %) 13.6 Plt Count (130 - 400 /CUMM) 170 MPV (7.4 - 10.4 FL) 9.8 Gran % (42.2 - 75.2 %) 73.7 Lymphocytes % (20.5 - 51.1 %) 15.2 L Monocytes % (1.7 - 9.3 %) 9.7 H Eosinophils % (0 - 5 %) 1.1 Basophils % (0.0 - 2.0 %) 0.3 Absolute Granulocytes (1.4 - 6.5 /CUMM) 4.8 Absolute Lymphocytes (1.2 - 3.4 /CUMM) 1.0 L Absolute Monocytes (0.10 - 0.60 /CUMM) 0.6 Absolute Eosinophils (0.0 - 0.7 /CUMM) 0.1 Absolute Basophils (0.0 - 0.2 /CUMM) 0 Assessment/Plan Assessment/Plan POD 3 sigmoidectomy, CV fistula repair with cysto and stent placement progress diet slowly -on clears, IV heplocked, no flatus yet encourage OOB and ambulation am labs pending davis to remain in place as per urology pain controlled Core Measures Venous Thromboembolism VTE Risk Factors Age>40 No Mechanical VTE Prophylaxis d/t N/A MechProphylax Ordered No VTE Pharm Prophylaxis d/t NA PharmProphylax ordered Joseph WELLS,[facility] 11/02/17 0703: Attending MD Review Statement Attending Statement Attending MD Statement: examined this patient Attending Assessment/Plan: Agree, min bowel sounds, OOB, awaiting return of bowel fn, keep Davis in.
[2017-11-01 08:47] LABS: ABSOLUTE BASOPHIL COUNT 0 /CUMM (0.0-0.2); ABSOLUTE EOSINOPHIL COUNT 0.2 /CUMM (0.0-0.7); ABSOLUTE GRANULOCYTE CT 2.9 /CUMM (1.4-6.5); ABSOLUTE MONOCYTE COUNT 0.6 /CUMM (0.10-0.60); BASOPHIL % 0.3 % (0.0-2.0); EOSINOPHIL % 4.6 % (0-5); GRANULOCYTE % 60.8 % (42.2-75.2); HEMATOCRIT 34.7 % (42-52); MEAN CORPUSCULAR HGB 30.5 PG (27.0-31.0); MEAN CORPUSCULAR HGB CONC 33.3 G/DL (33.0-37.0); MEAN CORPUSCULAR VOLUME 91.7 FL (80.0-94.0); MEAN PLATELET VOLUME 8.7 FL (7.4-10.4); PLATELET COUNT 166 /CUMM (130-400); RED BLOOD CELL CT 3.78 /CUMM (4.70-6.10); WHITE BLOOD CELL COUNT 4.8 /CUMM (4.8-10.8)
[2017-11-01 14:46] VITALS: BP 122/80
[2017-11-01 22:35] VITALS: BP 110/60
[2017-11-02 05:47] VITALS: BP 132/64
[2017-11-02 08:36] LABS: ABSOLUTE BASOPHIL COUNT 0 /CUMM (0.0-0.2); ABSOLUTE EOSINOPHIL COUNT 0.3 /CUMM (0.0-0.7); ABSOLUTE GRANULOCYTE CT 2.4 /CUMM (1.4-6.5); ABSOLUTE LYMPH COUNT 1.1 /CUMM (1.2-3.4); ABSOLUTE MONOCYTE COUNT 0.5 /CUMM (0.10-0.60); BASOPHIL % 0.4 % (0.0-2.0); EOSINOPHIL % 6.2 % (0-5); GRANULOCYTE % 55.2 % (42.2-75.2); HEMATOCRIT 35.4 % (42-52); MEAN CORPUSCULAR HGB CONC 33.8 G/DL (33.0-37.0); MEAN CORPUSCULAR VOLUME 91.7 FL (80.0-94.0); MEAN PLATELET VOLUME 10.2 FL (7.4-10.4); PLATELET COUNT 155 /CUMM (130-400); RBC DISTRIBUTION WIDTH 13.6 % (11.5-14.5); RED BLOOD CELL CT 3.86 /CUMM (4.70-6.10); WHITE BLOOD CELL COUNT 4.4 /CUMM (4.8-10.8)
--- NOTE | 2017-11-02 09:07 | PN- General Surgery ---
See Addendum Subjective Subjective: No acute events overnight. Pain feels as though he is getting a little bit better. He is not hungry, he is tolerating his clears. He feels mild abdominal gas, no flatus yet, no bowel movement. He was up and ambulatory yesterday a few times. Pain is controlled with pain medication. Objective Vital Signs and I&Os Vital Signs Date Time Temp Pulse Resp B/P B/P Pulse O2 O2 Flow FiO2 Mean Ox Delivery Rate 11/02 818 98.4 77 22 132/64 11/02 0819 98.4 77 22 132/64 11/02 0600 92 Room Air 11/02 0547 98.4 77 22 132/64 92 Room Air 11/01 2235 98.9 74 18 110/60 91 11/01 2200 95 Room Air 11/01 2109 75 120/64 11/01 2108 75 120/64 11/01 1600 93 Room Air 11/01 1446 98.2 78 18 122/80 90 Room Air 11/01 1400 93 Room Air 11/01 0928 78 138/60 11/01 0928 78 138/60 Intake & Output 11/02 1600 11/02 0800 11/02 0000 11/01 1600 11/01 0800 11/01 0000 Intake Total 650 130 Output Total 450 1500 913 562 8383 Balance -450 -1500 -150 -620 -1300 Intake, IV 10 Intake, Oral 650 120 Number 0 Bowel Movements Output, Urine 450 1500 336 636 0424 Patient 210 lb Weight Physical Exam: Well-developed well-nourished no apparent distress. HEENT: Atraumatic, extraocular motion intact Neck: Supple, no lymphadenopathy Respiratory: No respiratory distress Abdomen: Mild distention, faint bowel sounds, lower mid abdominal region dressing clean dry and intact, appropriate lower abdominal tenderness throughout , no tympany, no peritoneal signs Davis catheter has trace amount of sediment in the tubing, otherwise urine is yellow and clear Extremities: No edema, no calf pain Neuro: Alert and oriented x3 Psych: Mood affect normal, normal memory normal judgment. Skin: Warm and dry, no rash on exposed skin Results Last 48 Hours of Labs: Laboratory Tests 11/02 11/01 0615 0825 Chemistry Sodium (137 - 145 mmol/L) Pending 141 Potassium (3.5 - 5.1 mmol/L) Pending 3.8 Chloride (98 - 107 mmol/L) Pending 105 Carbon Dioxide (22 - 30 mmol/L) Pending 29 Anion Gap (5 - 16) Pending 7 BUN (9 - 20 mg/dL) Pending 10 Creatinine (0.7 - 1.2 mg/dL) Pending 0.8 Estimated GFR (>60 ml/min) > 60 BUN/Creatinine Ratio (7 - 25 %) Pending 12.5 Hematology CBC w Diff NO MAN DIFF REQ NO MAN DIFF REQ WBC (4.8 - 10.8 /CUMM) 4.4 L 4.8 RBC (4.70 - 6.10 /CUMM) 3.86 L 3.78 L Hgb (14.0 - 18.0 G/DL) 11.9 L 11.6 L Hct (42 - 52 %) 35.4 L 34.7 L MCV (80.0 - 94.0 FL) 91.7 91.7 MCH (27.0 - 31.0 PG) 31.0 30.5 MCHC (33.0 - 37.0 G/DL) 33.8 33.3 RDW (11.5 - 14.5 %) 13.6 14.0 Plt Count (130 - 400 /CUMM) 155 166 MPV (7.4 - 10.4 FL) 10.2 8.7 Gran % (42.2 - 75.2 %) 55.2 60.8 Lymphocytes % (20.5 - 51.1 %) 26.1 21.3 Monocytes % (1.7 - 9.3 %) 12.1 H 13.0 H Eosinophils % (0 - 5 %) 6.2 H 4.6 Basophils % (0.0 - 2.0 %) 0.4 0.3 Absolute Granulocytes (1.4 - 6.5 /CUMM) 2.4 2.9 Absolute Lymphocytes (1.2 - 3.4 /CUMM) 1.1 L 1.0 L Absolute Monocytes (0.10 - 0.60 /CUMM) 0.5 0.6 Absolute Eosinophils (0.0 - 0.7 /CUMM) 0.3 0.2 Absolute Basophils (0.0 - 0.2 /CUMM) 0 0 Assessment/Plan Assessment/Plan POD 4 sigmoidectomy, CV fistula repair with cysto and stent placement Continue clears Await return of bowel function encourage OOB and ambulation IS am chemistries pending davis to remain in place as per urology pain controlled, reduce narcotic use to help promote return of bowel function , add IV Toradol GI ppx with protonix Core Measures Venous Thromboembolism VTE Risk Factors Age>40 No Mechanical VTE Prophylaxis d/t N/A MechProphylax Ordered No VTE Pharm Prophylaxis d/t NA PharmProphylax ordered
[2017-11-02 13:51] VITALS: BP 110/80
[2017-11-02 22:33] VITALS: BP 114/66
[2017-11-03 06:58] VITALS: BP 106/68
--- NOTE | 2017-11-03 09:04 | PN- General Surgery ---
HumblePat 11/03/17 0858: Subjective Subjective: Patient comfortable feels progress this am. present and all questions answered. large loose BM this am with scant blood seen, feels overall better Objective Vital Signs and I&Os Vital Signs Date Time Temp Pulse Resp B/P B/P Pulse O2 O2 Flow FiO2 Mean Ox Delivery Rate 11/03 0658 98.3 76 18 106/68 92 Room Air 11/03 0600 94 Room Air 11/02 2233 98.3 74 18 114/66 93 11/02 2200 93 Room Air 11/02 2145 74 114/66 11/02 2144 74 114/66 11/02 1351 98.0 76 20 110/80 92 Room Air Intake & Output 11/03 1600 11/03 0800 11/03 0000 11/02 1600 11/02 0800 11/02 0000 Intake Total 100 400 Output Total 380 778 732 1872 Balance -280 -500 -450 -1500 Intake, Oral 100 400 Number 0 Bowel Movements Output, Urine 380 054 947 9734 Patient 210 lb Weight Physical Exam: VSS afebrile chest- CTA, symmetric Heart- RRR without MRG Abd - mild distention, pos BS, generalized soreness incision - CDI, dressing changed small tape blister lateral to incision with scant bloody drainage- xeroform and local wound care bilateral lower extremities soft with good perfusion Assessment/Plan Assessment/Plan POD 5 sigmoidectomy, CV fistula repair with cysto and stent placement loose BM this AM with flatus ongoing advance diet to FULLS at dinner encourage OOB and ambulation IS labs pending davis to remain in place as per urology pain controlled, reduce narcotic use to help promote return of bowel function , add IV Toradol GI ppx with protonix Core Measures Venous Thromboembolism VTE Risk Factors Age>40 No Mechanical VTE Prophylaxis d/t N/A MechProphylax Ordered No VTE Pharm Prophylaxis d/t NA PharmProphylax ordered Fabio Garcia MD 11/03/17 1155: Attending MD Review Statement Attending Statement Attending MD Statement: examined this patient Attending Assessment/Plan: ABOVE. BOWEL FUNCTION RETURNED. FEELS BETTER. ADVANCE DIET.
[2017-11-03 15:43] VITALS: BP 120/70
[2017-11-03 21:20] VITALS: BP 110/68
[2017-11-04 06:17] VITALS: BP 120/60
--- NOTE | 2017-11-04 08:51 | PN- General Surgery ---
Subjective Subjective: PT IN BED, SAYS HE IS FEELING BETTER THAN YESTERDAY. NO NAUSEA, TOLERATING FULLS , HAVING LOOSE BMS. DENEIS CP/SOB AND FEVERS Objective Vital Signs and I&Os Vital Signs Date Time Temp Pulse Resp B/P B/P Pulse O2 O2 Flow FiO2 Mean Ox Delivery Rate 11/04 06 97.8 75 19 120/60 94 Room Air 11/04 0600 95 Room Air 11/03 2200 93 Room Air 11/03 2120 98.1 83 18 110/68 92 11/03 2022 83 110/68 11/03 2022 83 110/68 11/03 1543 97.7 86 19 120/70 97 11/03 0915 98.3 76 18 106/68 11/03 0915 98.3 76 18 68 Intake & Output 11/04 1600 11/04 0811/04 0000 11/03 1600 11/03 0800 11/03 0000 Intake Total 500 450 360 100 400 Output Total 650 380 900 Balance 500 -200 360 -280 -500 Intake, Oral 500 450 360 100 400 Output, Urine 650 380 900 Physical Exam: GEN- NAD, SLEEPY RESP- CLEAR CARDIO-RRR ABD- ND, SOFT, MINIMALLY TENDER, DRESSING CHANGED, DAMIÁN IN PLACE, NO SIGNS OF INFECTION, NO DRAINAGE. SMALL OPEN ABRASION LATERAL TO SURGICAL WOUND, NO SIGNS OF INFECTION Current Medications: Current Medications Sig/Michael Start time Last Medication Dose Route Stop Time Status Admin Acetaminophen 975 MG Q6 11/04 1200 AC PO Acetaminophen 650 MG .STK-MED ONE 11/03 1239 DC PO 11/03 1240 Acetaminophen 650 MG Q4P PRN 10/26 0030 DC 11/03 PO 1243 Atorvastatin Calcium 40 MG 1700 10/26 1700 AC 11/03 PO 1737 Carvedilol 1.5625 MG BID 10/26 09 AC 11/03 PO 202 Heparin Sodium 5,000 UNIT Q8 10/26 0600 AC 11/04 (Porcine) SC 0610 Ketorolac 15 MG Q6 11/02 0915 DC 11/04 Tromethamine IV 11/04 0601 0610 Lisinopril 2.5 MG DAILY 10/26 0900 AC 11/03 PO 0915 Lorazepam 0.5 MG Q4P PRN 10/28 0800 AC 11/04 IV 0131 Morphine Sulfate 2 MG Q3P PRN 11/04 0830 AC IV Morphine Sulfate 4 MG Q3P PRN 11/02 0915 DC 11/03 IV 2129 Omeprazole 40 MG DAILY AC 11/02 1000 AC 11/04 PO 0610 Oxycodone HCl 5 MG Q4P PRN 11/04 0845 AC PO Oxycodone HCl 10 MG Q4P PRN 11/04 0845 UNVr PO Oxycodone/ 2 TAB Q4P PRN 11/02 0915 DC Acetaminophen PO Oxycodone/ 1 TAB Q4P PRN 11/02 0745 DC 11/03 Acetaminophen PO 193 Sodium Chloride 2 SPRAY Q4P PRN 10/31 2014 AC NEDRA Tamsulosin HCl 0.4 MG AT BEDTIME 10/26 2099 AC 11/03 PO 2022 Assessment/Plan Assessment/Plan 72YO M POD 6 sigmoidectomy, CV fistula repair with cysto and stent placement loose BM this AM with flatus ongoing FULLS LIQUIDS, may consider advancing to low residue later today encourage OOB and ambulation IS dvt ppx- hsq and ambulation, alps when in bed davis to remain in place as per urology pain controlled, reduce narcotic use to help promote return of bowel function , add IV Toradol GI ppx with protonix dc planning, possible dc later this afternoon or tomorrow will discuss with attending Core Measures Venous Thromboembolism VTE Risk Factors Age>40 No Mechanical VTE Prophylaxis d/t N/A MechProphylax Ordered No VTE Pharm Prophylaxis d/t NA PharmProphylax ordered
[2017-11-04] MEDS ORDERED: TYLENOL EXTRA500 M2 PO (09:38)
[2017-11-04] MEDS ORDERED: ROXICODONE5 M1 PO (09:38)
[2017-11-04 14:27] VITALS: BP 120/70
--- NOTE | 2017-11-04 17:02 | Operative Report ---
Operative/Inv Procedure Report Surgery Date: 10/29/17 Name of Procedure: Sigmoid colectomy with primary anastomosis Excision and closure of colovesical fistula Pre-Operative Diagnosis: Sigmoid diverticulitis and colovesical fistula Post-Operative Diagnosis: Same Estimated Blood Loss: scant Surgeon/Table Setter: Joseph WELLS,William DING Anesthesia: general endotracheal tube Operative/Procedure Note Note: Patient initially positioned supine after successful induction of general anesthesia he was repositioned into lithotomy and his groin and abdomen was clipped prepped and draped in the usual sterile fashion. A midline laparotomy incision was planned extending from the pubis to the top of the umbilicus this incision was made with a 15 blade through the skin and then cautery down to the fascia is incised between the rectus muscles that were coming through a tented up peritoneum with a knife again to complete the incision. There was a little bit of free fluid but I'll pus you could feel a thickened coiled sigmoid colon stuck to the bladder and proximally the sigmoid was also a little thickened and it was redundant traveling a little bit to the right before it turned left up the white line initially we had to lyse some adhesions from the sigmoid colon to the retroperitoneum on the right and as it came up we then could mobilize it a little more along the white line of Toldt because of the length of redundancy extensive left lateral to medial mobilization was not necessary. You could feel supple colon at the peritoneal reflection. Next a point was chosen to divide the proximal sigmoid colon based on length needed to perform a primary anastomosis, tics, and bowel wall thickening. This was about 16 cm proximal to the acutely inflamed part stuck to the bladder we developed a small window at the antimesenteric border divided with the BINA purple and then divided the mesentery distal to that staying close to the bowel wall until we came to the part stuck to the bladder which was both with blunt and sharp dissection revealing a small granulating open hole into the bladder which was oversewed with one 2-0 Vicryl U stitch now he can straighten out the colon we divided it again with the same stapler purple again about 2 cm proximal to the peritoneal reflection. With the sizer from below we checked the trajectory of the rectum we opened the proximal staple line, engaged the pursestring device and inserted a 31 anvil and then after clearing off some fat and checking the 2 ends for mating planning to drive the spike near one of the ends of the staple line, the EEA was inserted and engaged and fired it was removed there were 2 complete doughnuts and the anastomosis was checked using the proctoscope distally gently pumping some air while the anastomosis was submerged looking for a leak there was none. The anastomosis appeared intact, uniformly vascularized and not under undue tension. This area was inspected for bleeding and irrigated and then we gently brought down the omentum and with the LigaSure developed an extension of it at its inferior apex and interposed between the anastomosis and the suture in the bladder tacking in 2 spots. The fascia was then closed using #1 Maxon incorporating the fatty peritoneal layer subcutaneous was irrigated and skin reapproximated with farida followed by an island dressing. EBL minimal lap and sponge counts correct wound expectancy clean/contaminated IV fluids crystalloid complications none patient tolerated the procedure well was extubated and returned to recovery room in satisfactory condition.
== END 2017-11-04 17:07 | DRG 654 ==
LOC: ERH 14:29 → 2NA 23:33 → ERHI 23:33 → ENRESERV 10-26 00:10 → 2NA 10-26 01:15 → ENTRNSPT 10-29 13:47 → EDTRNSPTSTS 10-29 13:49 → EDTRNSPT 10-29 13:49 → CMPTRNSPT 10-29 14:11 → ENPENDDIS 11-04 09:49 → ENTRNSPT 11-04 15:43 → CMPTRNSPT 11-04 16:27 → DELTRNSPT 11-04 16:52 → 2NA 11-04 17:07
PROVIDERS: Nurse Practitioner; Physician Assistant; Physician Assistant Surgical
PROC: 0TQB0ZZ Repair Bladder, Open Approach (ICD-10-PCS; principal; 2017-10-29)
PROC: 0DTN0ZZ Resection of Sigmoid Colon, Open Approach (ICD-10-PCS; principal; 2017-10-29)
PROC: 0TH98YZ Insertion of Other Device into Ureter, Via Natural or Artificial Opening Endoscopic (ICD-10-PCS; 2017-10-29)
PROC: 3E0T3BZ Introduction of Anesthetic Agent into Peripheral Nerves and Plexi, Percutaneous Approach (ICD-10-PCS; 2017-10-29)
DX: N32.1 Vesicointestinal fistula (principal); K57.32 Diverticulitis of large intestine without perforation or abscess without bleeding; N39.0 Urinary tract infection, site not specified; I10 Essential (primary) hypertension; E78.5 Hyperlipidemia, unspecified; I25.10 Atherosclerotic heart disease of native coronary artery without angina pectoris; I25.2 Old myocardial infarction; Z98.61 Coronary angioplasty status; Z88.8 Allergy status to other drugs, medicaments and biological substances; K64.9 Unspecified hemorrhoids; N40.0 Benign prostatic hyperplasia without lower urinary tract symptoms
CPT/HCPCS: 2NASP; ERO; 36415; 36592; 74177; 76000; 81001; 82436; 87040; 87086; 87088; 88304; 88307; 93005; 93010; 96374; 96375; 97110-GO; 97116-GO; 97161-GP; 97530-GO; C2617; J0131; J1100; J1644; J1885; J2405; J3490; J7042

== ENCOUNTER → 2017-11-14 | Day surgery (SDC) | payer OTHER, MEDICARE ==
[~2017-11-14] VITALS: Ht 185.4 cm; Wt 95.3 kg
[~2017-11-14] MED LIST: ASPIRIN EC81 M1 PO; CIPROFLOXACIN500 M2 PO; COREG3.125 MG PO; CRESTOR10 M1 PO; FLOMAX0.4 M1 PO; LISINOPRIL2.5 M1 PO; ROXICODONE5 M1 PO; TYLENOL EXTRA500 M2 PO
--- NOTE | 2017-11-14 09:55 | Operative Report ---
Operative/Inv Procedure Report Surgery Date: 11/14/17 Name of Procedure: cystoscopy: urolift implant (x 6) Pre-Operative Diagnosis: BPH with urinary retention Post-Operative Diagnosis: same Estimated Blood Loss: scant Surgeon/Senior Controls Technician: Adrian Adler MD Anesthesia: laryngeal mask airway Implants: 6 UROLIFT implants Drains: none Complications: none Operative/Procedure Note Note: The patient was taken to the operating room and placed on the OR table in supine position. Timeout was performed, with the patient awake, in order to confirm correct identity, procedure, antibiotics, anesthesia, and other pertinent perioperative information. After adequate anesthesia and antibiotics, the patient was then placed lithotomy stirrups, draped and prepped in the usual surgical fashion, after removing the indwelling Sanchez catheter. A 20 Citizen [place] cystoscope was inserted into the bladder without significant difficulty, noting the bilateral obstructing lobes of the prostate, with small middle lobe. The cystoscope bridge was replaced with the UROLIFT deployment device. The first treatment site was the patient's left base of prostate, approximately 1.5 cm distal to the bladder neck. The distal tip of the delivery device was then angled laterally, approximately 20 at this position to compress the lateral lobe. The trigger was pulled, thereby deploying a needle containing the implant through the prostate. The needle was then retracted, allowing one end of the implant to be delivered to the capsule surface of the prostate. The implant was then tensioned to assure capsular sealing and removal of slack monofilament. The device was then angled back toward midline and slowly advanced proximally until cystoscopic verification of the monofilament being centered in the delivery bay. The urethral end piece was then affixed to the monofilament, thereby tailoring the size of the implant. Excess filament was then severed. The delivery device was then readvanced into the bladder. The delivery device was then replaced with cystoscope, and bridge, and implant location and opening effect was confirmed cystoscopically. The same procedure was then repeated on the right side, just distal to the right bladder neck. And 2 additional implants were delivered proximal to the vera montanum, again one on the right and one in the left side of the prostate following the similar technique. Having re-scoped the prostate lumen, I was not satisfied with the channel opening with the mid-prostate lobes collapsed. Cystoscopy revealed a persistent that area of obstruction, and 2 more implants were delivered in the mid prostate; one on the right lateral lobe, and 2 on the left lateral robe. A total of 6 implants were placed in the patient's anterio prostate, in order to create an open channel. A final cystoscopy was conducted to inspect the location of each implant, and second, to confirm the presence of a continuous anterior channel present through the prostatic urethra, with the irrigation flow turned off. The bladder was then filled with 150 mL of irrigation fluid, and the cystoscope was removed. A 20 Citizen [place] Sanchez was inserted without difficulty, draining clear fluid. patient tolerated procedure well All sponge needle and instrument count were correct at the end of the case. The patient tolerated the procedure well, and taken to the recovery room in satisfactory condition. Findings: colo-ves. fistula healed well. Discharge Disposition: PACU CC: Adrian Adler MD
== END ==
LOC: STS 02:02
DX: N40.1 Benign prostatic hyperplasia with lower urinary tract symptoms (principal); R33.8 Other retention of urine; I25.2 Old myocardial infarction; I10 Essential (primary) hypertension; Z95.5 Presence of coronary angioplasty implant and graft
CPT/HCPCS: 82355; J0690; J0696; J2250; L8699

== ENCOUNTER 2017-12-05 13:18 | Observation (INO) | payer OTHER, MEDICARE ==
[~2017-12-05] VITALS: Ht 185.4 cm; Wt 93.2 kg
--- NOTE | 2017-12-05 13:40 | ED GI/GU/ABDOMINAL COMPLAINT ---
History of Present Illness General Chief Complaint: Abdominal Pain/Flank Pain Stated Complaint: ABD PAIN, HAD SURGERY 11/29 ON LARGE INTESTINE Source: patient, old records Exam Limitations: no limitations Vital Signs & Intake/Output Vital Signs & Intake/Output Vital Signs Date Time Temp Pulse Resp B/P B/P Pulse O2 O2 Flow FiO2 Mean Ox Delivery Rate 12/05 1641 97.7 82 18 118/73 Room Air 12/05 1405 68 28 131/62 99 Room Air 12/05 1352 Room Air Room Air 12/05 1329 97.4 53 30 142/75 97 Room Air Allergies Coded Allergies: digoxin (JAUNDICE 11/13/17) flecainide (JAUNDICE 11/13/17) Reconcile Medications Aspirin (Ecotrin*) 325 MG TABLET.DR 1 TAB PO DAILY HEART/BLOOD (Reported) Carvedilol (Coreg) 3.125 MG TABLET 1 TAB PO BID HEART/BP (Reported) Lisinopril 2.5 MG TABLET 1 TAB PO DAILY BP (Reported) Rosuvastatin Calcium (Crestor) 10 MG TABLET 1 TAB PO DAILY CHOLESTEROL ( Reported) Tamsulosin HCl (Flomax) 0.4 MG CAP.ER.24H 1 CAP PO DAILY PROSTATE (Reported) Triage Note: 72M TO ED FOR EXCRUCIATING ABDOMINAL PAIN/CRAMPING X1 HOUR. HAD 18 INCH COLON RESECTION 11/30/[address] BETH. AFEBRILE. PT MOANING OUT IN PAIN, ABDOMEN TENDER TO PALPATION. +BELCHING. REPORTS FEELING ON FIRE AND THAT HE IS GOING TO PASS OUT. DENIES CP OR N/V. LAST BM TODAY AND "NORMAL" BROWN PER PATIENT. AFEBRILE. PT TAKEN IMMEDIATELY TO ROOM 5 FOR TRIAGE AND TOÑA SANTOS AND DR ORELLANA TO BEDSIDE FOR ABD U/S TO R/O FREE FLUID Triage Nurses Notes Reviewed? yes Onset: Abrupt Duration: hour(s): Timing: single episode today Quality/Severity: severe Severity Numbers: 10 Location: periumbilical Radiation: back HPI: 72-year-old male with history of hypertension, s/p sigmoid colectomy and excision and closure of colovesical fistula on 10/[address] Leal presents to ED complaining of severe periumbilical abdominal pain beginning about 1 hour prior to arrival with abrupt onset. Patient currently described as 10/10, severe, sharp. Patient also notes pain in his back which is new in onset as well. Patient reports associated lightheadedness. Patient has had no complications following his surgery last month, he has been eating normal diet and having regular bowel movements. He denies chest pain, vomiting. (Connie Rashid) Past History Travel History Traveled to [place] past 21 day No Medical History Any Pertinent Medical History? see below for history Neurological: NONE EENT: hearing loss, TINNITIS Cardiovascular: hypertension, hyperlipidemia, CARDIAC STENTS Respiratory: NONE Gastrointestinal: COLON RESECTION Hepatic: NONE Renal: BLADDER PUNCTURE Musculoskeletal: NONE Psychiatric: NONE Endocrine: NONE Blood Disorders: NONE Cancer(s): NONE SUEDING MACHINE TENDER/Reproductive: ENLARGED PROSTATE History of MRSA: No History of VRE: No History of CDIFF: No Surgical History Surgical History: bilateral carpal tunnel Psychosocial History Who do you live with Spouse Services at Home None What is your primary language Bulgarian Tobacco Use: Never used ETOH Use: denies use Illicit Drug Use: denies illicit drug use Family History Hx Contributory? No (Connie Rashid) Review of Systems Review of Systems Constitutional: Reports: no symptoms. EENTM: Reports: no symptoms. Respiratory: Reports: no symptoms. Cardiovascular: Reports: no symptoms. GI: Reports: see HPI. Genitourinary: Reports: no symptoms. Musculoskeletal: Reports: no symptoms. Skin: Reports: no symptoms. Neurological/Psychological: Reports: no symptoms. Hematologic/Endocrine: Reports: no symptoms. Immunologic/Allergic: Reports: no symptoms. All Other Systems: Reviewed and Negative (Connie Rashid) Physical Exam Physical Exam General Appearance: well developed/nourished, alert, awake, moderate distress Head: atraumatic, normal appearance Eyes: Bilateral: normal appearance. Ears, Nose, Throat, Mouth: hearing grossly normal Neck: normal inspection, supple, full range of motion Respiratory: normal breath sounds, no respiratory distress, lungs clear Cardiovascular: regular rate/rhythm Gastrointestinal: normal bowel sounds, soft, no organomegaly, periumbilical abdominal tenderness with guarding Back: normal inspection, normal range of motion Extremities: normal range of motion Neurologic/Psych: awake, alert, oriented x 3 Skin: intact, normal color, warm/dry Core Measures ACS in differential dx? Yes Sepsis Present: No Sepsis Focused Exam Completed? No (Connie Rashid) Progress Differential Diagnosis: AAA, AMI, appendicitis, bowel obstruction, diverticulitis, gastritis, ischemic bowel, peptic ulcer, PUD/GERD, perforated viscous, SBO Plan of Care: Orders Procedure Date/time Status Place in observation 12/05 1849 Active ED Holding Orders 12/05 1849 Active LACTIC ACID 12/05 1623 Complete TROPONIN LEVEL 12/05 1323 Complete PARTIAL THROMBOPLASTIN TIME 12/05 1323 Complete PROTHROMBIN TIME 12/05 1323 Complete LIPASE 12/05 1323 Complete LACTIC ACID 12/05 1323 Complete COMPREHENSIVE METABOLIC PANEL 12/05 1323 Complete CBC WITHOUT DIFFERENTIAL 12/05 1323 Complete EKG 12/05 1320 Active Laboratory Tests 12/05/17 1639: Lactic Acid 1.1 12/05/17 1346: Anion Gap 11, Estimated GFR > 60, BUN/Creatinine Ratio 21.1, Glucose 142 H, Lactic Acid 2.3 H, Calcium 9.7, Total Bilirubin 1.4 H, AST 40, ALT 39, Alkaline Phosphatase 162 H, Troponin I < 0.01, Total Protein 8.1, Albumin 4.6, Globulin 3.5, Albumin/Globulin Ratio 1.3, Lipase 67, PT 11.9, INR 1.09, APTT 33, CBC w Diff NO MAN DIFF REQ, RBC 4.68 L, MCV 91.2, MCH 30.2, MCHC 33.1, RDW 13.8 , MPV 9.1, Gran % 56.6, Lymphocytes % 26.6, Monocytes % 10.4 H, Eosinophils % 6.1 H, Basophils % 0.3, Absolute Granulocytes 4.0, Absolute Lymphocytes 1.9, Absolute Monocytes 0.7 H, Absolute Eosinophils 0.4, Absolute Basophils 0 Upon arrival patient in moderate distress due to his abdominal pain. Patient was brought directly into . His blood pressure stable. Dr. Orellana present at bedside to perform fast abdominal exam, upper abdominal aorta visualized and was within normal limits. Labs and CTA are pending. Patient started on IV fluids and IV morphine. Surgery was paged given the patient's distress. 3:45 PM - spoke with surgical TOÑA Buckley regarding this patient's presentation to the hospital. 2:00 pm - discussed patient's presentation and exam findings with Dr. Garcia who agrees with our current plan CT scan findings show possible partial small bowel obstruction. Surgical TOÑA Buckley present to see and evaluate the patient. Awaiting evaluation with surgeon Dr. Garcia. Patient no longer is distress and resting comfortably. The patient was seen and evaluated by DR. Garcia. We'll keep patient for surgical observation given partial small bowel obstruction detected on CAT scan however patient is no longer in distress and is comfortable. Patient agrees with plan of care. Diagnostic Imaging: Viewed by Me: CT Scan. Discussed w/RAD: CT Scan. Radiology Impression: PATIENT: ZITA RODRIGUEZ PRESENT AGE: 72 PATIENT ACCOUNT NO: [id number] : 44 LOCATION: [facility] ORDERING PHYSICIAN: Connie DING SERVICE DATE: 12/05/17 EXAM TYPE: CAT - CT ABD & PELVIS ANGIOGRAM; CTA CHEST-AORTIC DISSECTION EXAMINATION: CT ANGIOGRAM OF THE CHEST, ABDOMEN AND PELVIS WITHOUT AND WITH CONTRAST CLINICAL INFORMATION: Abrupt onset of severe abdominal pain. COMPARISON: CT abdomen and pelvis 10/25/2017. TECHNIQUE: Multidetector volumetric CT imaging of the chest, abdomen, and pelvis was performed before and after the administration of 95 mL of Omnipaque 350 intravenous contrast without immediate adverse reactions. The images were reviewed and postprocessed on a dedicated 3-D workstation. Maximum intensity projection vascular images were produced and reviewed. DLP: 1831 mGy- cm. FINDINGS: VASCULAR: ASCENDING AORTA: Normal caliber with no evidence of intramural hematoma or dissection. Stented LAD. AORTIC ARCH: Normal caliber with no evidence of intramural hematoma or dissection. Three-vessel arch with the great vessel origins being patent. DESCENDING AORTA: Normal caliber with no evidence of intramural hematoma or dissection. ABDOMINAL AORTA: The upper abdominal aorta is normal in caliber. The infrarenal aorta is ectatic at the level of the inferior mesenteric artery measuring 3.2 x 2.9 cm. There is mild mural thrombus/plaque. No dissection or periaortic fluid. CELIOMESENTERIC ARTERIES: Patent. No embolic disease demonstrated. Out stenosis at the origin of the celiac artery. RENAL ARTERIES: The renal arteries are patent. RIGHT ILIOFEMORAL ARTERIES: Mild atherosclerotic disease. LEFT ILIOFEMORAL ARTERIES: Mild atherosclerotic disease. NONVASCULAR: LUNGS: Atelectasis at the lung bases. MEDIASTINUM: No adenopathy. PLEURA: There is no pleural effusion. No pleural mass or thickening. LIVER, GALLBLADDER, AND BILIARY TREE: The liver is normal in size, shape, and attenuation. No focal hepatic lesion or biliary ductal dilatation is present. The gallbladder is unremarkable with no evidence of radiopaque gallstones, gallbladder wall thickening, or obvious pericholecystic inflammatory changes. PANCREAS: Unremarkable. SPLEEN: Unremarkable. ADRENAL GLANDS: Unremarkable. KIDNEYS AND URETERS: The kidneys are normal in size, shape , and attenuation. No hydronephrosis, hydroureter, or calculi seen. No perinephric stranding. BLADDER: Previously seen colovesical fistula is not seen. GASTROINTESTINAL TRACT: Status post sigmoid resection with anastomosis. Surgical staple line noted. No evidence of large bowel obstruction. The appendix appears normal. In the central lower abdomen and pelvis the small bowel is mildly dilated with some congestion in the mesentery and mild interloop fluid. The finding may reflect an early or partial small bowel obstruction. ABDOMINAL WALL: Laparotomy scar noted. No hernia. LYMPH NODES: No measurable lymphadenopathy. PELVIC VISCERA: Surgical clips or brachytherapy seeds seen in the prostate. OSSEOUS STRUCTURES: Moderate degenerative changes in the lumbar spine. IMPRESSION: No evidence of acute aortic pathology. Mildly dilated loops of small bowel in the mid lower abdomen and pelvis with hazy mesentery and trace interloop fluid. The findings are consistent with an early or partial small bowel obstruction. General surgery consultation is recommended with close clinical observation and follow-up. DICTATED BY: Riaz Roberts MD DATE/TIME DICTATED:12/05/171516 DAYCARE MANAGER:IGNACIO DATE/TIME TRANSCRIBED:1516 CONFIDENTIAL, DO NOT COPY WITHOUT APPROPRIATE AUTHORIZATION. < Electronically signed in Other Vendor System> SIGNED BY: Riaz Roberts MD 12/05/17 1539 Initial ED EKG: SINUS BRADYCARDIA @53BPM, NONSPECIFIC ST CHANGES Prior EKG: unchanged (10/25/17) (Ritika DING,Connie Foster) Departure Departure Disposition: STILL A PATIENT Condition: Stable Clinical Impression Primary Impression: Abdominal pain Secondary Impressions: Partial small bowel obstruction Referrals: Yesica WELLS,Jovany Bo (PCP/Family) Departure Forms: Customer Survey General Discharge Information Observation Note Spoke With: Fabio Garcia MD Physician Advisor Notified: ESTEBAN WELLS,ANISHA Boone. Place Patient In: Non-ED OBS Care Area Rationale for Observation: My rational for observation is as follows [partial small bowel obstruction detected on CAT scan, patient arrived in emergency Department acute distress, He is no longer in distress however requires IV fluids and observation to further rule out bowel obstruction and bowel ischemia, patient requires surgical consult , premature discharge medically unsafe]. (Ritika DING,Connie Foster) PA/BOOTH SUPERVISOR Co-Sign Statement Statement: ED Attending supervision documentation- [x] I saw and evaluated the patient. I have also reviewed all the pertinent lab results and diagnostic results. I agree with the findings and the plan of care as documented in the PA's/BOOTH SUPERVISOR's documentation. [x] I have reviewed the ED Record and agree with the PA's/BOOTH SUPERVISOR's documentation. [] Additions or exceptions (if any) to the PAs/BOOTH SUPERVISOR's note and plan are summarized below: [Patient and replace and surgical observation, pain control. If his symptoms improved. Stable for discharge tomorrow however the portion than potential surgical intervention will be needed.] (Esteban WELLS,Anisha Spangler)
[2017-12-05 14:02] LABS: ABSOLUTE BASOPHIL COUNT 0 /CUMM (0.0-0.2); ABSOLUTE EOSINOPHIL COUNT 0.4 /CUMM (0.0-0.7); ABSOLUTE LYMPH COUNT 1.9 /CUMM (1.2-3.4); ABSOLUTE MONOCYTE COUNT 0.7 /CUMM (0.10-0.60); BASOPHIL % 0.3 % (0.0-2.0); EOSINOPHIL % 6.1 % (0-5); GRANULOCYTE % 56.6 % (42.2-75.2); HEMATOCRIT 42.7 % (42-52); MEAN CORPUSCULAR HGB 30.2 PG (27.0-31.0); MEAN CORPUSCULAR HGB CONC 33.1 G/DL (33.0-37.0); MEAN CORPUSCULAR VOLUME 91.2 FL (80.0-94.0); MEAN PLATELET VOLUME 9.1 FL (7.4-10.4); PLATELET COUNT 251 /CUMM (130-400); RBC DISTRIBUTION WIDTH 13.8 % (11.5-14.5); RED BLOOD CELL CT 4.68 /CUMM (4.70-6.10)
[2017-12-05 14:07] LABS: PT 11.9 SEC (9.4-12.5); PTT 33 SEC (25-37)
--- NOTE | 2017-12-05 15:39 | CT SCAN REPORT ---
EXAMINATION: CT ANGIOGRAM OF THE CHEST, ABDOMEN AND PELVIS WITHOUT AND WITH CONTRAST CLINICAL INFORMATION: Abrupt onset of severe abdominal pain. COMPARISON: CT abdomen and pelvis 10/25/2017. TECHNIQUE: Multidetector volumetric CT imaging of the chest, abdomen, and pelvis was performed before and after the administration of 95 mL of Omnipaque 350 intravenous contrast without immediate adverse reactions. The images were reviewed and postprocessed on a dedicated 3-D workstation. Maximum intensity projection vascular images were produced and reviewed. DLP: 1831 mGy-cm. FINDINGS: VASCULAR: ASCENDING AORTA: Normal caliber with no evidence of intramural hematoma or dissection. Stented LAD. AORTIC ARCH: Normal caliber with no evidence of intramural hematoma or dissection. Three-vessel arch with the great vessel origins being patent. DESCENDING AORTA: Normal caliber with no evidence of intramural hematoma or dissection. ABDOMINAL AORTA: The upper abdominal aorta is normal in caliber. The infrarenal aorta is ectatic at the level of the inferior mesenteric artery measuring 3.2 x 2.9 cm. There is mild mural thrombus/plaque. No dissection or periaortic fluid. CELIOMESENTERIC ARTERIES: Patent. No embolic disease demonstrated. Out stenosis at the origin of the celiac artery. RENAL ARTERIES: The renal arteries are patent. RIGHT ILIOFEMORAL ARTERIES: Mild atherosclerotic disease. LEFT ILIOFEMORAL ARTERIES: Mild atherosclerotic disease. NONVASCULAR: LUNGS: Atelectasis at the lung bases. MEDIASTINUM: No adenopathy. PLEURA: There is no pleural effusion. No pleural mass or thickening. LIVER, GALLBLADDER, AND BILIARY TREE: The liver is normal in size, shape, and attenuation. No focal hepatic lesion or biliary ductal dilatation is present. The gallbladder is unremarkable with no evidence of radiopaque gallstones, gallbladder wall thickening, or obvious pericholecystic inflammatory changes. PANCREAS: Unremarkable. SPLEEN: Unremarkable. ADRENAL GLANDS: Unremarkable. KIDNEYS AND URETERS: The kidneys are normal in size, shape, and attenuation. No hydronephrosis, hydroureter, or calculi seen. No perinephric stranding. BLADDER: Previously seen colovesical fistula is not seen. GASTROINTESTINAL TRACT: Status post sigmoid resection with anastomosis. Surgical staple line noted. No evidence of large bowel obstruction. The appendix appears normal. In the central lower abdomen and pelvis the small bowel is mildly dilated with some congestion in the mesentery and mild interloop fluid. The finding may reflect an early or partial small bowel obstruction. ABDOMINAL WALL: Laparotomy scar noted. No hernia. LYMPH NODES: No measurable lymphadenopathy. PELVIC VISCERA: Surgical clips or brachytherapy seeds seen in the prostate. OSSEOUS STRUCTURES: Moderate degenerative changes in the lumbar spine. IMPRESSION: No evidence of acute aortic pathology. Mildly dilated loops of small bowel in the mid lower abdomen and pelvis with hazy mesentery and trace interloop fluid. The findings are consistent with an early or partial small bowel obstruction. General surgery consultation is recommended with close clinical observation and follow-up.
--- NOTE | 2017-12-05 16:11 | History & Physical Pre-Op ---
Ravi Wade 12/05/17 1607: General Information and HPI MD Statement: I have seen and personally examined ZITA RODRIGUEZ and documented this H&P. The patient is a 72 year old M who presented with a patient stated chief complaint of [abdominal pain]. Source of Information: patient Exam Limitations: no limitations History of Present Illness: This is a 72-year-old male who is approximately 5 weeks status post open sigmoid colectomy secondary to severe diverticulitis and colovesicular fistula performed by William Ruiz MD. Surgery went without complications and patient was transferred to the floor and had an uneventful postoperative course. He was doing well since surgery, eating normal diet, having daily normal bowel movements and having no pain until earlier this morning when he started getting some pain in the periumbilical region. It was moderate and then quickly resolved however, after a few hours it returned again, this time severe, sharp aching radiating to the back associated with nausea and diaphoresis. Patient drove himself to the ER for evaluation. In the ER CT scan and lab work was performed, there is evidence of early or partial small bowel obstruction on CT scan and surgery was consulted for further evaluation and treatment. Upon my evaluation patient is feeling significantly better, he has mild pain and tenderness in the superior umbilical region but otherwise he has no pain, no nausea, no vomiting. Patient states that once he got to the ER he felt as though he was going to vomit and he belched excessively which helped relieve his symptoms. He states he had a normal bowel movement this morning but has not passed much gas today since. He denies any fever or flulike illness. 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 spouse Services at Home None ETOH Use: denies use Illicit Drug Use: denies illicit drug use Functional Ability ADLs Independent: dressing, eating, toileting, bathing. Ambulation: independent IADLs Independent: shopping, housework, finances, food prep, telephone, transportation , medication admin. Review of Systems Review of Systems: Review of systems: See HPI, all other systems negative. Constitutional: No chills fever or weight loss HEENT: No visual changes no sore throat no congestion Cardiovascular: No chest pain ,palpitation , orthopnea or ankle swelling Skin: No jaundice no rashes Respiratory: No dyspnea cough sputum or hemoptysis GI: See HPI : No dysuria no hematuria Musclulo skeletal: No back pain no neck pain, Neurologic: No numbness no confusion Psych: No stress anxiety or depression,. Heme/endocrine: No bruising no bleeding no polyuria or polydipsia Immunology: No splenectomy or history of AIDS Exam & Diagnostic Data Last 24 Hrs of Vital Signs/I&O Vital Signs Date Time Temp Pulse Resp B/P B/P Pulse O2 O2 Flow FiO2 Mean Ox Delivery Rate 12/05 1405 68 28 131/62 99 Room Air 12/05 1352 Room Air Room Air 12/05 1329 97.4 53 30 142/75 97 Room Air Intake & Output 12/05 1600 12/05 0800 12/05 0000 Intake Total Output Total Balance Patient 205 lb Weight Physical Exam: Well-developed well-nourished person in no acute distress HEENT: Normal EENT exam, extraocular motion intact, moist mucous membranes Neck: Supple, no lymphadenopathy Cardiovascular: Regular rate and rhythms no murmurs, normal JVP Respiratory: Chest nontender. No respiratory distress. Breath sounds clear to auscultation bilaterally Abdomen: Soft, nondistended, well-healed lower abdominal midline incision. There is tenderness about the superior umbilicus region with mild firmness and induration without erythema. The remainder of the abdomen is nontender, no rebound, no guarding, no tympany. No appreciable organomegaly. Normal bowel sounds. No ascites Extremity: No edema, no calf tenderness to palpation, normal and equal pulses. Neuro: Alert oriented x3, motor sensory normal Skin: No appreciable rash on exposed skin, skin is warm and dry. Psych: Mood and affect is normal, memory and judgment is normal. Last 24 Hrs of Labs/Shahzad: Laboratory Tests 12/05/17 1346: Anion Gap 11, Estimated GFR > 60, BUN/Creatinine Ratio 21.1, Glucose 142 H, Lactic Acid 2.3 H, Calcium 9.7, Total Bilirubin 1.4 H, AST 40, ALT 39, Alkaline Phosphatase 162 H, Troponin I < 0.01, Total Protein 8.1, Albumin 4.6, Globulin 3.5, Albumin/Globulin Ratio 1.3, Lipase 67, PT 11.9, INR 1.09, APTT 33, CBC w Diff NO MAN DIFF REQ, RBC 4.68 L, MCV 91.2, MCH 30.2, MCHC 33.1, RDW 13.8 , MPV 9.1, Gran % 56.6, Lymphocytes % 26.6, Monocytes % 10.4 H, Eosinophils % 6.1 H, Basophils % 0.3, Absolute Granulocytes 4.0, Absolute Lymphocytes 1.9, Absolute Monocytes 0.7 H, Absolute Eosinophils 0.4, Absolute Basophils 0 Diagnostic Data Other Results PATIENT: ZITA RODRIGUEZ PRESENT AGE: 72 PATIENT ACCOUNT NO: [id number] : 44 LOCATION: [facility] ORDERING PHYSICIAN: Connie DING SERVICE DATE: 12/05/17 EXAM TYPE: CAT - CT ABD & PELVIS ANGIOGRAM; CTA CHEST-AORTIC DISSECTION EXAMINATION: CT ANGIOGRAM OF THE CHEST, ABDOMEN AND PELVIS WITHOUT AND WITH CONTRAST CLINICAL INFORMATION: Abrupt onset of severe abdominal pain. COMPARISON: CT abdomen and pelvis 10/25/2017. TECHNIQUE: Multidetector volumetric CT imaging of the chest, abdomen, and pelvis was performed before and after the administration of 95 mL of Omnipaque 350 intravenous contrast without immediate adverse reactions. The images were reviewed and postprocessed on a dedicated 3-D workstation. Maximum intensity projection vascular images were produced and reviewed. DLP: 1831 mGy-cm. FINDINGS: VASCULAR: ASCENDING AORTA: Normal caliber with no evidence of intramural hematoma or dissection. Stented LAD. AORTIC ARCH: Normal caliber with no evidence of intramural hematoma or dissection. Three-vessel arch with the great vessel origins being patent. DESCENDING AORTA: Normal caliber with no evidence of intramural hematoma or dissection. ABDOMINAL AORTA: The upper abdominal aorta is normal in caliber. The infrarenal aorta is ectatic at the level of the inferior mesenteric artery measuring 3.2 x 2.9 cm. There is mild mural thrombus/plaque. No dissection or periaortic fluid. CELIOMESENTERIC ARTERIES: Patent. No embolic disease demonstrated. Out stenosis at the origin of the celiac artery. RENAL ARTERIES: The renal arteries are patent. RIGHT ILIOFEMORAL ARTERIES: Mild atherosclerotic disease. LEFT ILIOFEMORAL ARTERIES: Mild atherosclerotic disease. NONVASCULAR: LUNGS: Atelectasis at the lung bases. MEDIASTINUM: No adenopathy. PLEURA: There is no pleural effusion. No pleural mass or thickening. LIVER, GALLBLADDER, AND BILIARY TREE: The liver is normal in size, shape, and attenuation. No focal hepatic lesion or biliary ductal dilatation is present. The gallbladder is unremarkable with no evidence of radiopaque gallstones, gallbladder wall thickening, or obvious pericholecystic inflammatory changes. PANCREAS: Unremarkable. SPLEEN: Unremarkable. ADRENAL GLANDS: Unremarkable. KIDNEYS AND URETERS: The kidneys are normal in size, shape, and attenuation. No hydronephrosis, hydroureter, or calculi seen. No perinephric stranding. BLADDER: Previously seen colovesical fistula is not seen. GASTROINTESTINAL TRACT: Status post sigmoid resection with anastomosis. Surgical staple line noted. No evidence of large bowel obstruction. The appendix appears normal. In the central lower abdomen and pelvis the small bowel is mildly dilated with some congestion in the mesentery and mild interloop fluid. The finding may reflect an early or partial small bowel obstruction. ABDOMINAL WALL: Laparotomy scar noted. No hernia. LYMPH NODES: No measurable lymphadenopathy. PELVIC VISCERA: Surgical clips or brachytherapy seeds seen in the prostate. OSSEOUS STRUCTURES: Moderate degenerative changes in the lumbar spine. IMPRESSION: No evidence of acute aortic pathology. Mildly dilated loops of small bowel in the mid lower abdomen and pelvis with hazy mesentery and trace interloop fluid. The findings are consistent with an early or partial small bowel obstruction. General surgery consultation is recommended with close clinical observation and follow-up. DICTATED BY: Riaz Roberts MD DATE/TIME DICTATED:12/05/171516 COPRA PROCESSOR:IGNACIO DATE/TIME TRANSCRIBED:12/05/171516 Assessment/Plan Assessment/Plan: 72-year-old male approximately 5 weeks status post sigmoid colectomy secondary to diverticulitis and colovesicular fistula presents with sudden onset of periumbilical abdominal pain associated with belching and nausea. CT scan is suggestive of a partial or early small bowel obstruction. We will need to continue to monitor the patient for signs of worsening small bowel obstruction or ischemic bowel as he did have a slightly elevated lactic acid of 2.3. He will need serial examinations and trending of his lactic acid. Place patient in observation to the surgical service. Bowel rest, n.p.o., IV fluids. Monitor for return of bowel function. Pain medication as needed. Out of bed ambulate. Heparin subcu and ALPS for DVT prophylaxis. Jose WELLS,Fabio Boone 12/05/171851: General Information and HPI Allergies/Medications Home Med list Aspirin (Ecotrin*) 325 MG TABLET.DR 1 TAB PO DAILY HEART/BLOOD (Reported) Carvedilol (Coreg) 3.125 MG TABLET 1 TAB PO BID HEART/BP (Reported) Lisinopril 2.5 MG TABLET 1 TAB PO DAILY BP (Reported) Rosuvastatin Calcium (Crestor) 10 MG TABLET 1 TAB PO DAILY CHOLESTEROL ( Reported) Tamsulosin HCl (Flomax) 0.4 MG CAP.ER.24H 1 CAP PO DAILY PROSTATE (Reported) Exam & Diagnostic Data Last 24 Hrs of Vital Signs/I&O Vital Signs Date Time Temp Pulse Resp B/P B/P Pulse O2 O2 Flow FiO2 Mean Ox Delivery Rate 12/05 1855 84 18 118/64 97 Room Air 12/05 1641 97.7 82 18 118/73 Room Air 12/05 1405 68 28 131/62 99 Room Air 12/05 1352 Room Air Room Air 12/05 1329 97.4 53 30 142/75 97 Room Air Intake & Output 12/05 1600 12/05 0800 12/05 0000 Intake Total Output Total Balance Patient 205 lb Weight Last 24 Hrs of Labs/Shahzad: Laboratory Tests 12/05/17 1639: Lactic Acid 1.1 12/05/17 1346: Anion Gap 11, Estimated GFR > 60, BUN/Creatinine Ratio 21.1, Glucose 142 H, Lactic Acid 2.3 H, Calcium 9.7, Total Bilirubin 1.4 H, AST 40, ALT 39, Alkaline Phosphatase 162 H, Troponin I < 0.01, Total Protein 8.1, Albumin 4.6, Globulin 3.5, Albumin/Globulin Ratio 1.3, Lipase 67, PT 11.9, INR 1.09, APTT 33, CBC w Diff NO MAN DIFF REQ, RBC 4.68 L, MCV 91.2, MCH 30.2, MCHC 33.1, RDW 13.8 , MPV 9.1, Gran % 56.6, Lymphocytes % 26.6, Monocytes % 10.4 H, Eosinophils % 6.1 H, Basophils % 0.3, Absolute Granulocytes 4.0, Absolute Lymphocytes 1.9, Absolute Monocytes 0.7 H, Absolute Eosinophils 0.4, Absolute Basophils 0 Assessment/Plan As Ranked By This Provider Problem List: 1. Partial obstruction of small intestine Attending MD Review Statement Attending Statement Attending MD Statement: examined this patient, discuss w/resident/PA/SATE[employer] TV INSTALLER, discussed with family, reviewed images Attending Assessment/Plan: 72yo male one month post sigmoid colectomy with takedown of colovesicle fistula. Patient developed acute onset severe abdominal pain an nausea with radiation to back. flushed. severe pain in ER with need for high doses of dilaudid for control. Belched with relief. now comfortable but still not completely resolved. normal diet today, normal bm. no flatus since in the ER. abdomen exam normal. healing midline scar. CT shows ?early sbo. my interpretation is that there is none. But his stomach was quite distended. will bring in for observation, ivf, bowel rest. restart diet tomorrow and discharge if tolerates.
[2017-12-05] MEDS ORDERED: ASPIRIN EC325 M2 PO (17:19)
--- NOTE | 2017-12-05 19:03 | Admission Core Measures ---
Acute Coronary Syndrome (CM) ACS Core Measures Acute Coronary Syndrome Diagnosis No Congestive Heart Failure (NEW) CHF Core Measures Congestive Heart Failure Diagnosis No Cerebrovascular Accident CVA Core Measures CVA/TIA Diagnosis No Venous Thromboembolism VTE Core Tate (View Protocol) VTE Risk Factors No risk factors No Mechanical VTE Prophylaxis d/t N/A MechProphylax Ordered No VTE Pharm Prophylaxis d/t NA PharmProphylax ordered Problem List As ranked by this Provider includes Assessment & Plan 1. Partial obstruction of small intestine HOME MEDS Home Med List Aspirin (Ecotrin*) 325 MG TABLET.DR 1 TAB PO DAILY HEART/BLOOD (Reported) Carvedilol (Coreg) 3.125 MG TABLET 1 TAB PO BID HEART/BP (Reported) Lisinopril 2.5 MG TABLET 1 TAB PO DAILY BP (Reported) Rosuvastatin Calcium (Crestor) 10 MG TABLET 1 TAB PO DAILY CHOLESTEROL ( Reported) Tamsulosin HCl (Flomax) 0.4 MG CAP.ER.24H 1 CAP PO DAILY PROSTATE (Reported)
--- NOTE | 2017-12-05 19:05 | Patient Discharge Instructions ---
Discharge Instructions General Discharge Information You were seen/treated for: SBO Watch for these problems: Increased abdominal pain, nausea, vomiting, excessive diarrhea, or no bowel movements, or any other problems, questions or concerns Diet Continue normal diet: Yes Activity Full Activity/No Limits: No Activity Self Limited: Yes Acute Coronary Syndrome Inclusion Criteria At DC or during hospital stay patient has or had the following: Discharge Core Measures Meds if any: Prescribed or Continued at Discharge Meds if any: NOT Prescribed or Continued at Discharge Congestive Heart Failure Inclusion Criteria At DC or during hospital stay patient has or had the following: Discharge Core Measures Meds if any: Prescribed or Continued at Discharge Meds if any: NOT Prescribed or Continued at Discharge Cerebrovascular accident Inclusion Criteria At DC or during hospital stay patient has or had the following: CVA/TIA Diagnosis No Discharge Core Measures Meds if any: Prescribed or Continued at Discharge Meds if any: NOT Prescribed or Continued at Discharge Venous thromboembolism Discharge Core Measures - Per Current guidelines, there needs to be overlap - treatment for the first 5 days of Warfarin therapy. - If discharged on Warfarin prior to 5 days of - overlap therapy, the patient will need to be - assessed for post discharge needs including - *Post discharge parental anticoagulation - *Warfarin and/or parental anticoagulation education - *Follow up date to check INR post discharge Meds if any: Prescribed or Continued at Discharge Note: Overlap Therapy is Warfarin and Anticoagulant Meds if any: NOT Prescribed or Continued at Discharge
[2017-12-05 22:26] VITALS: BP 106/69
[2017-12-06 06:31] VITALS: BP 106/52
--- NOTE | 2017-12-06 08:08 | PN- General Surgery ---
See Addendum Subjective Subjective: No complaints. Denies pain. No nausea. No flatus or bm yet. Voiding well. He wants to eat a regular breakfast. Objective Vital Signs and I&Os Vital Signs Date Time Temp Pulse Resp B/P B/P Pulse O2 O2 Flow FiO2 Mean Ox Delivery Rate 12/06 0631 98.1 57 20 106/52 98 Room Air 12/05 2226 97.9 72 20 106/69 96 12/05 1855 84 18 118/64 97 Room Air 12/05 1641 97.7 82 18 118/73 Room Air 12/05 1405 68 28 131/62 99 Room Air 12/05 1352 Room Air Room Air 12/05 1329 97.4 53 30 142/75 97 Room Air Intake & Output 12/06 1600 12/06 0812/06 0000 12/05 1600 12/05 0000 Intake Total 600 75 Output Total 450 Balance 150 75 Intake, IV 600 75 Output, Urine 450 Patient 206 lb 205 lb Weight Physical Exam: General - alert & oriented x 3. comfortable. no acute distress. Lungs - clear bilaterally. no w/r/r. Cardiac - s1s2. reg. Abdomen - soft. few bowel sounds appreciated. nondistended. nontender. Extremities - warm bilaterally. no c/c/e. calves soft and nontender b/l. Current Medications: Current Medications Sig/Michael Start time Last Medication Dose Route Stop Time Status Admin Acetaminophen 1,000 MG Q8P PRN 12/05 1900 AC PO Buprenorphine/ 0 .STK-MED ONE 12/06 0638 DC Naloxone SL Diphenhydramine HCl 50 MG Q6P PRN 12/05 1900 AC 12/05 IV 2122 Hydromorphone HCl 0 .STK-MED ONE 12/05 1657 DC .ROUTE Hydromorphone HCl 1 MG ONCE ONE 12/05 1645 DC 12/05 IV 12/05 1646 1658 Hydromorphone HCl 1 MG ONCE ONE 12/05 1445 DC 12/05 IV 12/05 1446 1448 Hydromorphone HCl 0 .STK-MED ONE 12/05 1445 DC .ROUTE Hydromorphone HCl 1 MG ONCE ONE 12/05 1415 DC 12/05 IV 12/05 1416 1409 Hydromorphone HCl 0 .STK-MED ONE 12/05 1408 DC .ROUTE Lactated Ringer's 1,000 ML ONCE ONE 12/05 1900 AC 12/05 IV 12/06 0819 2122 Morphine Sulfate 2 MG Q4P PRN 12/05 190 AC IV Morphine Sulfate 4 MG Q4P PRN 12/05 190 AC IV Morphine Sulfate 0 .STK-MED ONE 12/05 1351 DC .ROUTE Morphine Sulfate 4 MG ONCE ONE 12/05 1345 DC 12/05 IV 12/05 1346 1351 Ondansetron HCl 4 MG Q6P PRN 12/05 190 AC IV Sodium Chloride 1,000 ML BOLUS ONE 12/05 1615 DC 12/05 IV 12/05 1714 1641 Sodium Chloride 1,000 ML BOLUS ONE 12/05 1345 DC 12/05 IV 12/05 1444 1347 Results Last 48 Hours of Labs: Laboratory Tests 12/06 12/05 12/05 0628 1639 1346 Chemistry Sodium (137 - 145 mmol/L) Pending 135 L Potassium (3.5 - 5.1 mmol/L) Pending 4.5 Chloride (98 - 107 mmol/L) Pending 98 Carbon Dioxide (22 - 30 mmol/L) Pending 26 Anion Gap (5 - 16) Pending 11 BUN (9 - 20 mg/dL) Pending 19 Creatinine (0.7 - 1.2 mg/dL) Pending 0.9 Estimated GFR (>60 ml/min) > 60 BUN/Creatinine Ratio (7 - 25 %) Pending 21.1 Glucose (65 - 99 mg/dL) 142 H Lactic Acid (0.7 - 2.1 mmol/L) 1.1 2.3 H Calcium (8.4 - 10.2 mg/dL) 9.7 Total Bilirubin (0.2 - 1.3 mg/dL) 1.4 H AST (17 - 59 U/L) 40 ALT (21 - 72 U/L) 39 Alkaline Phosphatase (< 127 U/L) 162 H Troponin I (<0.11 ng/ml) < 0.01 Total Protein (6.3 - 8.2 g/dL) 8.1 Albumin (3.5 - 5.0 g/dL) 4.6 Globulin (1.9 - 4.2 gm/dL) 3.5 Albumin/Globulin Ratio (1.1 - 2.2 %) 1.3 Lipase (23 - 300 U/L) 67 Coagulation PT (9.4 - 12.5 SEC) 11.9 INR (0.90 - 1.17) 1.09 APTT (25 - 37 SEC) 33 Hematology CBC w Diff Pending NO MAN DIFF REQ WBC (4.8 - 10.8 /CUMM) Pending 7.0 RBC (4.70 - 6.10 /CUMM) Pending 4.68 L Hgb (14.0 - 18.0 G/DL) Pending 14.1 Hct (42 - 52 %) Pending 42.7 MCV (80.0 - 94.0 FL) Pending 91.2 MCH (27.0 - 31.0 PG) Pending 30.2 MCHC (33.0 - 37.0 G/DL) Pending 33.1 RDW (11.5 - 14.5 %) Pending 13.8 Plt Count (130 - 400 /CUMM) Pending 251 MPV (7.4 - 10.4 FL) Pending 9.1 Gran % (42.2 - 75.2 %) 56.6 Lymphocytes % (20.5 - 51.1 %) 26.6 Monocytes % (1.7 - 9.3 %) 10.4 H Eosinophils % (0 - 5 %) 6.1 H Basophils % (0.0 - 2.0 %) 0.3 Absolute Granulocytes (1.4 - 6.5 /CUMM) 4.0 Absolute Lymphocytes (1.2 - 3.4 /CUMM) 1.9 Absolute Monocytes (0.10 - 0.60 /CUMM) 0.7 H Absolute Eosinophils (0.0 - 0.7 /CUMM) 0.4 Absolute Basophils (0.0 - 0.2 /CUMM) 0 Assessment/Plan Assessment/Plan This 72-year-old male approximately 5 weeks s/p sigmoid colectomy secondary to diverticulitis and colovesicular fistula presented with sudden onset of periumbilical abdominal pain associated with belching and nausea, with CT scan is suggestive of a partial or early small bowel obstruction, resolved lactic acidemia with iv fluid resuscitation, currently with resolution of presenting symptoms currently npo / ivf will trial diet this morning. advance as tolerated oob/ambulation encouraged hep sc - dvt ppx f/u labs awaiting bowel function may consider f/u xray observation status given likelihood of resolution of psbo, anticipating possible discharge today if tolerating diet advancement will d/w Core Measures Venous Thromboembolism VTE Risk Factors No risk factors No Mechanical VTE Prophylaxis d/t N/A MechProphylax Ordered No VTE Pharm Prophylaxis d/t NA PharmProphylax ordered
[2017-12-06 08:24] LABS: ABSOLUTE BASOPHIL COUNT 0 /CUMM (0.0-0.2); ABSOLUTE EOSINOPHIL COUNT 0.3 /CUMM (0.0-0.7); ABSOLUTE LYMPH COUNT 1.1 /CUMM (1.2-3.4); ABSOLUTE MONOCYTE COUNT 0.6 /CUMM (0.10-0.60); BASOPHIL % 0.3 % (0.0-2.0); MEAN CORPUSCULAR HGB CONC 33.8 G/DL (33.0-37.0)
[2017-12-06 08:49] LABS: ABSOLUTE GRANULOCYTE CT 2.9 /CUMM (1.4-6.5); EOSINOPHIL % 6.1 % (0-5); GRANULOCYTE % 59.3 % (42.2-75.2); HEMATOCRIT 34.7 % (42-52); MEAN CORPUSCULAR VOLUME 91.5 FL (80.0-94.0); MEAN PLATELET VOLUME 9.9 FL (7.4-10.4); PLATELET COUNT 158 /CUMM (130-400); RED BLOOD CELL CT 3.79 /CUMM (4.70-6.10)
--- NOTE | 2017-12-06 09:53 | Surg Short-stay <48hrs Dis Sum ---
Visit Information Visit Dates Admission Date: 12/05/17 Discharge Date: 12/06/17 Surgical Short Stay DC Summary Admission Diagnosis: Intestinal obstruction Final Diagnosis: Same Procedure(s): None Summary/Significant Findings: Patient was admitted to the surgical service for concerns of possible early partial small bowel obstruction. His symptoms resolved just prior to admission and they did not recur. The next morning he felt well a diet was initiated. He was discharged home. Condition at Discharge: Good Discharge Disposition: home or self care Discharge instructions provided to patient/family: Yes Post discharge follow-up plan: William Ruiz MD in the office 1 week Copies to: Yesica WELLS,Jovany Bo
== END 2017-12-06 11:29 ==
LOC: ERH 13:18 → ERHI 18:50 → ENRESERV 19:24 → ENTRNSPT 19:50 → EDTRNSPT 20:15 → EDTRNSPTSTS 20:15 → 2NB 20:16 → CMPTRNSPT 20:21 → ENPENDDIS 12-06 09:31 → 2NB 12-06 11:29
PROVIDERS: Physician Assistant; Physician Assistant Surgical
DX: K56.609 Unspecified intestinal obstruction, unspecified as to partial versus complete obstruction (principal); H91.90 Unspecified hearing loss, unspecified ear; H93.19 Tinnitus, unspecified ear; I10 Essential (primary) hypertension; E78.5 Hyperlipidemia, unspecified; Z79.82 Long term (current) use of aspirin
CPT/HCPCS: 6040; 36592; 74174; 82436; 93005; 93010; 96361; 96374; 96375; 96376; G0378; J1200; J1644; J7120

== ENCOUNTER 2017-12-12 05:56 | Emergency (ER) | payer OTHER, MEDICARE ==
[~2017-12-12] VITALS: Ht 185.4 cm; Wt 91.2 kg
[~2017-12-12 05:56] MED LIST changes: +ASPIRIN EC325 M2 PO
--- NOTE | 2017-12-12 06:23 | ED GI/GU/ABDOMINAL COMPLAINT ---
History of Present Illness General Chief Complaint: Abdominal Pain/Flank Pain Stated Complaint: ABD PAIN HX BOWEL RESECTION SEEN HERE LAST WEEK Source: patient Exam Limitations: no limitations Vital Signs & Intake/Output Vital Signs & Intake/Output Vital Signs Date Time Temp Pulse Resp B/P B/P Pulse O2 O2 Flow FiO2 Mean Ox Delivery Rate 12/12 0825 97.2 73 20 117/71 97 Room Air 12/12 0616 Room Air 12/12 0610 97.5 56 20 128/71 96 Room Air Allergies Coded Allergies: digoxin (JAUNDICE 11/13/17) flecainide (JAUNDICE 11/13/17) Reconcile Medications Aspirin (Ecotrin*) 325 MG TABLET.DR 1 TAB PO DAILY HEART/BLOOD (Reported) Carvedilol (Coreg) 3.125 MG TABLET 1 TAB PO BID HEART/BP (Reported) Lisinopril 2.5 MG TABLET 1 TAB PO DAILY BP (Reported) Rosuvastatin Calcium (Crestor) 10 MG TABLET 1 TAB PO DAILY CHOLESTEROL ( Reported) Tamsulosin HCl (Flomax) 0.4 MG CAP.ER.24H 1 CAP PO DAILY PROSTATE (Reported) Triage Note: PT COMING IN FROM HOME C/O ABD PAIN. GENERALIZED ABD TENDERNESS. PT HAD A BOWEL RESECTION ON 11/29/17. PT DENIES N/V/D. PAIN 12/23. PT DENIES ANY OTHER COMPLAINTS. PT GUARDING ABDOMEN AND MOANING IN PAIN. PAIN STARTED AT APPROX 0400. Triage Nurses Notes Reviewed? yes Onset: Gradual Duration: day(s): Timing: recent history Quality/Severity: moderate Location: generalized abdomen Radiation: back Activities at Onset: none Modifying Factors: Worsens With: palpation. 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 Last bowel movement was 2 days ago. He notes nausea, without vomiting, and crampy abdominal discomfort. No dysuria, fever, chills, headache, chest pain, dyspnea, dizziness. He is otherwise well. (Danette WELLS,Justus Calloway) Past History Travel History Traveled to [place] past 21 day No Medical History Any Pertinent Medical History? 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 No (Danette WELLS,Justus Calloway) Review of Systems Review of Systems Constitutional: Reports: no symptoms. EENTM: Reports: no symptoms. Respiratory: Reports: no symptoms. Cardiovascular: Reports: no symptoms. GI: Reports: no symptoms. Genitourinary: Reports: no symptoms. Musculoskeletal: Reports: no symptoms. Skin: Reports: no symptoms. Neurological/Psychological: Reports: no symptoms. Hematologic/Endocrine: Reports: no symptoms. Immunologic/Allergic: Reports: no symptoms. All Other Systems: Reviewed and Negative (Justus Samaniego MD) Physical Exam Physical Exam General Appearance: well developed/nourished, moderate distress Head: atraumatic, normal appearance Eyes: Bilateral: normal appearance. Ears, Nose, Throat, Mouth: hearing grossly normal, moist mucous membrane Neck: normal inspection, supple, full range of motion Respiratory: normal breath sounds, chest non-tender, no respiratory distress, quiet respiration, lungs clear Cardiovascular: regular rate/rhythm Gastrointestinal: soft, diminished bowel bowel sounds, mild distension. Back: normal inspection Extremities: normal range of motion Neurologic/Psych: no motor/sensory deficits, awake, alert, oriented x 3 Skin: intact, normal color, warm/dry Core Measures ACS in differential dx? No Sepsis Present: No Sepsis Focused Exam Completed? No (Justus Samaniego MD) Progress Differential Diagnosis: sbo vs other. Plan of Care: Orders Procedure Date/time Status TROPONIN LEVEL 12/12 621 Complete LIPASE 12/12 0622 Complete LACTIC ACID 12/12 06 Complete HEPATIC FUNCTION PANEL 12/12 06 Complete D-DIMER 12/12 06 Complete CBC WITHOUT DIFFERENTIAL 12/12 621 Complete BASIC METABOLIC PANEL 12/12 06 Complete AMYLASE 12/12 06 Complete EKG 12/12 06 Active Laboratory Tests 12/12/17 0922: Lactic Acid Cancelled 12/12/17 0625: Anion Gap 9, Estimated GFR > 60, BUN/Creatinine Ratio 23.8, Glucose 111 H, Lactic Acid 0.9, Calcium 9.3, Total Bilirubin 0.8, Direct Bilirubin 0.2, AST 30, ALT 36, Alkaline Phosphatase 137 H, Troponin I < 0.01, Total Protein 6.9, Albumin 4.0, Amylase 50, Lipase 33, D-Dimer High Sensitivty 386 H, CBC w Diff NO MAN DIFF REQ, RBC 4.33 L, MCV 90.7, MCH 30.8, MCHC 34.0, RDW 14.0, MPV 9.0, Gran % 63.3, Lymphocytes % 18.6 L, Monocytes % 11.0 H, Eosinophils % 6.8 H, Basophils % 0.3, Absolute Granulocytes 4.1, Absolute Lymphocytes 1.2, Absolute Monocytes 0.7 H, Absolute Eosinophils 0.4, Absolute Basophils 0 Diagnostic Imaging: Viewed by Me: Radiology Read. Discussed w/RAD: Radiology Read. Initial ED EKG: sinus, no acute change from prior (Danette WELLS,Justus Calloway) Comments: 12/12/2017 7:49:02 AM patient signed out to me by Dr. 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 12/12/2017 8:45:43 AM I have updated Edward on test results. His physical examination is unremarkable: Abdomen is soft with normal bowel sounds and no palpable masses (although diffusely tender without rebound or guarding). Awaiting Dr. Garcia (paged). 12/12/2017 9:20:53 AM patient's case discussed with William Ruiz MD. He has asked that the surgical PA evaluate the patient and a plan formulated. 12/12/2017 10:38:13 AM I have updated Edward on the plan. He will return home and self monitor for any worsening. Clear liquid diet. Follow-up with William Ruiz MD tomorrow. (Angela WELLS,Gil Santoyo) Departure Departure Disposition: HOME OR SELF CARE Condition: Stable Referrals: Yesica WELLS,Jovany Bo (PCP/Family) Departure Forms: Customer Survey General Discharge Information Comments 12/12/17, 7am... pt signed out to dr. miller... awaiting xrays to assess for sbo ( no CT this AM. (Danette WELLS,Justus Calloway) Departure Clinical Impression Primary Impression: Abdominal pain Qualifiers: Abdominal location: generalized Qualified Code: R10.84 - Generalized abdominal pain Additional Instructions: Clear liquid diet for the rest of today. You may then advance diet as tolerated. Follow-up with Dr. Ruiz tomorrow for reevaluation. Notify your primary care doctor of this emergency department visit and treatment plan. Return if any concerns or sudden worsening. Please note that there might be incidental findings in your evaluation that are unrelated to the current emergency department visit. Please notify your primary care doctor about this emergency department visit in order to obtain and review all of the testing performed so that these incidental findings can be monitored as needed. If you had an x-ray performed, please understand that some fractures or other findings may not be seen on the initial set of x-rays. If your symptoms persist you might need a repeat set of x-rays to check for such a fracture. If you had a laceration evaluated, please understand that foreign bodies such as glass or wood may not be visible to the naked eye or on plain x-rays. If the wound becomes red, swollen, increasingly more painful or if there is any drainage from the wound, please have it reevaluated by a physician for the possibility of a retained foreign body. If you're unable to follow up as outlined in the discharge instructions please return to the emergency department. Thank you for choosing the [facility] Emergency Department for your care. It was a pleasure to serve you today. Gil Miller M.D. [facility] (Angela WELLS,Gil Santoyo) ED Attending Observation Initial Observation Note: I have seen and personally examined ZITA RODRIGUEZ on 12/12/17 at 0657. I agree with the current emergency department documentation. The disposition (admission or discharge) is uncertain at this time, he needs a period of observation for the following reason(s): The ED Nurse caring for this patient has been personally informed as to what the patient is being observed for. (Danette WELLS,Justus Calloway)
[2017-12-12 06:36] LABS: ABSOLUTE BASOPHIL COUNT 0 /CUMM (0.0-0.2); ABSOLUTE EOSINOPHIL COUNT 0.4 /CUMM (0.0-0.7); ABSOLUTE GRANULOCYTE CT 4.1 /CUMM (1.4-6.5); ABSOLUTE LYMPH COUNT 1.2 /CUMM (1.2-3.4); ABSOLUTE MONOCYTE COUNT 0.7 /CUMM (0.10-0.60); BASOPHIL % 0.3 % (0.0-2.0); EOSINOPHIL % 6.8 % (0-5); GRANULOCYTE % 63.3 % (42.2-75.2); HEMATOCRIT 39.3 % (42-52); MEAN CORPUSCULAR HGB 30.8 PG (27.0-31.0); MEAN CORPUSCULAR VOLUME 90.7 FL (80.0-94.0); PLATELET COUNT 203 /CUMM (130-400); RED BLOOD CELL CT 4.33 /CUMM (4.70-6.10); WHITE BLOOD CELL COUNT 6.5 /CUMM (4.8-10.8)
--- NOTE | 2017-12-12 08:05 | RADIOLOGY REPORT ---
EXAMINATION: XR ABDOMEN WITH FRONTAL CHEST CLINICAL INDICATION: Abdominal pain. Assess for small bowel obstruction. COMPARISON: CT scan of the chest, abdomen and pelvis 12/05/2017. TECHNIQUE: Frontal view of the chest an upright and supine views of the abdomen were obtained. FINDINGS: The lung beauchamp are well expanded. There is a 0.8 cm nodular opacity at the left base laterally, corresponding to a density seen on the CT scan. The cardiac silhouette is normal in size. There is a coronary stent along the left heart. The aortic arch is unfolded. There is bronchial central wall thickening. There are no pleural effusions or pneumothorax. The central pulmonary vasculature is normal. The hilar regions appear normal. There are no acute osseous findings. The bowel gas pattern is nonspecific, and there is feces and air within the large bowel and rectum. There are mildly dilated loops of small bowel centrally. There are no fluid levels. There are anastomotic sutures in the left mid pelvis. There are surgical clips/radiation seeds in the region of the prostate gland. The paravertebral structures are unremarkable. There are degenerative changes of the sacroiliac joints. There are severe multilevel spondylosis in the lumbar spine. IMPRESSION: 1. There is no focal consolidation or evidence of congestive heart failure. Bronchial thickening centrally may be consistent with bronchitis. 2. There are slightly dilated loops of small bowel without fluid levels. Air and feces are noted within the large bowel and rectum. 3. There is a small nodule at the left base.
--- NOTE | 2017-12-12 10:51 | Cons- General Surgery ---
General Information and HPI Consulting Request Date of Consult: 12/12/17 Requested By: Dr. Samaniego Reason for Consult: abd pain, ?SBO Source of Information: patient Exam Limitations: no limitations History of Present Illness: Pt presents to ED with complaints of abd pain that started around 5am this morning, crampy in nature that radiated to his back. Denies nausea or vomiting but did beltch seversal times this morning. Pt states he is passing flatus but has not had a BM in the last 24h which isnt abnormal for him. He deneis fever, dysurea, Cp/SOB. Pt had a similar episode last week for an SBO for which he was admitted to the hospital and placed on bowel rest and his SBO quickly resolved and he tolerated a diet within 12 hours. Allergies/Medications Allergies: Coded Allergies: digoxin (JAUNDICE 11/13/17) flecainide (JAUNDICE 11/13/17) Home Med List: Aspirin (Ecotrin*) 325 MG TABLET.DR 1 TAB PO DAILY HEART/BLOOD (Reported) Carvedilol (Coreg) 3.125 MG TABLET 1 TAB PO BID HEART/BP (Reported) Lisinopril 2.5 MG TABLET 1 TAB PO DAILY BP (Reported) Rosuvastatin Calcium (Crestor) 10 MG TABLET 1 TAB PO DAILY CHOLESTEROL ( Reported) Tamsulosin HCl (Flomax) 0.4 MG CAP.ER.24H 1 CAP PO DAILY PROSTATE (Reported) Past History Medical History Neurological: NONE EENT: hearing loss, TINNITIS Cardiovascular: hypertension, hyperlipidemia, CARDIAC STENTS Respiratory: NONE Gastrointestinal: COLON RESECTION Hepatic: NONE Renal: BLADDER PUNCTURE Musculoskeletal: NONE Psychiatric: NONE Endocrine: NONE Blood Disorders: NONE Cancer(s): NONE 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 spouse Services at Home: None Functional Ability ADLs Independent: dressing, eating, toileting, bathing. Ambulation: independent IADLs Independent: shopping, housework, finances, food prep, telephone, transportation , medication admin. Employment History Retired? no Review of Systems Review of Systems: as per HPI Exam & Diagnostic Data Vital Signs and I&O Vital Signs Date Time Temp Pulse Resp B/P B/P Pulse O2 O2 Flow FiO2 Mean Ox Delivery Rate 12/12 0825 97.2 73 20 117/71 97 Room Air 12/12 0616 Room Air 12/12 0610 97.5 56 20 128/71 96 Room Air Intake & Output 12/12 0812/12 0000 12/11 0000 Intake Total 1000 Output Total Balance 1000 Intake, IV 1000 Intake, Oral 0 Patient 201 lb Weight Weight Reported by Patient Measurement Method Physical Exam: gen- NAD, resting comforably resp- clear bilaterally cardiac- RRR abd- ND, +BS, soft, very minimally tender in LLQ, no gaurding or rebound tenderness. Midline incision is healing well with no signs of infection ext- warm and dry, no calf tenderness Last 24 Hours of Labs: Laboratory Tests 12/12 12/12 0922 0625 Chemistry Sodium (137 - 145 mmol/L) 138 Potassium (3.5 - 5.1 mmol/L) 4.2 Chloride (98 - 107 mmol/L) 104 Carbon Dioxide (22 - 30 mmol/L) 26 Anion Gap (5 - 16) 9 BUN (9 - 20 mg/dL) 19 Creatinine (0.7 - 1.2 mg/dL) 0.8 Estimated GFR (>60 ml/min) > 60 BUN/Creatinine Ratio (7 - 25 %) 23.8 Glucose (65 - 99 mg/dL) 111 H Lactic Acid (0.7 - 2.1 mmol/L) Cancelled 0.9 Calcium (8.4 - 10.2 mg/dL) 9.3 Total Bilirubin (0.2 - 1.3 mg/dL) 0.8 Direct Bilirubin (< 0.4 mg/dL) 0.2 AST (17 - 59 U/L) 30 ALT (21 - 72 U/L) 36 Alkaline Phosphatase (< 127 U/L) 137 H Troponin I (<0.11 ng/ml) < 0.01 Total Protein (6.3 - 8.2 g/dL) 6.9 Albumin (3.5 - 5.0 g/dL) 4.0 Amylase (30 - 110 U/L) 50 Lipase (23 - 300 U/L) 33 Coagulation D-Dimer High Sensitivty (0 - 243 ng/ml) 386 H Hematology CBC w Diff NO MAN DIFF REQ WBC (4.8 - 10.8 /CUMM) 6.5 RBC (4.70 - 6.10 /CUMM) 4.33 L Hgb (14.0 - 18.0 G/DL) 13.4 L Hct (42 - 52 %) 39.3 L MCV (80.0 - 94.0 FL) 90.7 MCH (27.0 - 31.0 PG) 30.8 MCHC (33.0 - 37.0 G/DL) 34.0 RDW (11.5 - 14.5 %) 14.0 Plt Count (130 - 400 /CUMM) 203 MPV (7.4 - 10.4 FL) 9.0 Gran % (42.2 - 75.2 %) 63.3 Lymphocytes % (20.5 - 51.1 %) 18.6 L Monocytes % (1.7 - 9.3 %) 11.0 H Eosinophils % (0 - 5 %) 6.8 H Basophils % (0.0 - 2.0 %) 0.3 Absolute Granulocytes (1.4 - 6.5 /CUMM) 4.1 Absolute Lymphocytes (1.2 - 3.4 /CUMM) 1.2 Absolute Monocytes (0.10 - 0.60 /CUMM) 0.7 H Absolute Eosinophils (0.0 - 0.7 /CUMM) 0.4 Absolute Basophils (0.0 - 0.2 /CUMM) 0 Imaging Results: X-ray shows no air fluid levels and gas and feces in the rectum Assessment/Plan Assessment/Plan This is a 72yo M with hx of colon resection now in ER with complaints of abdominal pain that started this morning. KUB shows no airfluid levels and question on some dialated loops of SB. Since in the ER, his pain has resolved, he has no nausea and he is passing gas. Pt is ok to DC to home, can FU with Dr. Fang as needed. Rec to slowly advance diet as tolerated starting with clear liquids Rec a low fiber diet Encourage frequent ambulation This was discussed with Dr. fang and he agrees with the above plan. Consult Acknowledgment - Thank you for your consult request.
[2017-12-12 10:56] VITALS: BP 120/74
== END 2017-12-12 10:56 ==
LOC: ERH 05:56
PROVIDERS: Pediatrics
DX: R10.84 Generalized abdominal pain (principal); R11.0 Nausea; I10 Essential (primary) hypertension; Z79.82 Long term (current) use of aspirin
CPT/HCPCS: 74022; 93005; 93010; 96361; 96374